=== PATIENT | female | born 1955 | race Caucasian/White ===

== ENCOUNTER 2019-04-29 09:53 | Outpatient (CLI) | payer MEDICAID, SELFPAY ==
[2019-04-29 10:53] LABS: Absolute Basophil Count 0.03 k/cumm (0.0-0.2); Absolute Monocyte Count 0.33 k/cumm (0.11-0.7); Absolute Neutrophil Count 2.39 k/cumm (1.2-6.7); Basophils % 0.6; Eosinophils % 2.2; HCT 36.2 % (36.0-46.0); HGB 11.9 g/dL (12.0-15.5); Lymphocytes % 38.7; Mean Corp. HGB Concentration 32.9 g/dL (32.0-36.0); Mean Corpuscular Hemoglobin 32.1 pg (27.0-33.0); Mean Corpuscular Volume 97.6 fL (80-95); Mean Platelet Volume 10.9 fL (8.0-11.0); Monocytes % 7.1; Neutrophils % 51.4; Platelet Count 208 x1000/uL (130-400); RBC 3.71 m/cumm (4.00-5.20); RBC Distribution Width 12.5 % (11.7-14.6); White Blood Cell Count 4.65 k/cumm (4.4-10.8)
[2019-04-29 12:01] LABS: Vitamin D 25 Total 35.7 ng/ml (30-100)
[2019-04-29 12:09] LABS: ALT 14 U/L (12-78); AST 16 U/L (15-37); Albumin 3.7 g/dL (3.4-5.0); Alkaline Phosphatase 83 U/L (46-116); Anion Gap 8.5 mmol/L (3-11); BUN 25 mg/dL (7-18); Bilirubin, Total 0.3 mg/dL (0.2-1.0); CO2 26.5 mmol/L (21.0-32.0); CREATININE 0.45 mg/dL (0.55-1.02); Calcium 9.2 mg/dL (8.5-10.1); Calculated LDL 117; Chloride 103 mmol/L (98-107); Cholesterol 186 mg/dL (50-200); Glucose 94 mg/dL (70-100); HDL Cholesterol 55 mg/dL (40-60); Magnesium 1.8 mg/dL (1.8-2.4); Potassium 4.6 mmol/L (3.5-5.1); Sodium 138 mmol/L (136-145); TSH 2.35 uIU/mL (0.358-3.74); Total Protein 6.2 g/dL (6.4-8.2); Triglyceride 74 mg/dL (30-150); Vitamin B12 436 pg/mL (193-986)
== END 2019-04-29 10:13 ==
PROVIDERS: PCP Family Medicine Addiction Medicine; Visit Provider Family Medicine Addiction Medicine
DX: Z00.01 Encounter for general adult medical examination with abnormal findings (principal)
CPT/HCPCS: 36415; 80053; 80061; 82306; 83721; 82607; 83735; 84443; 85025

== ENCOUNTER 2019-12-06 11:20 | Outpatient (CLI) | payer MEDICARE, MEDICAID, SELFPAY ==
[2019-12-06 12:44] LABS: Abs Immature Grans 0.02 k/cumm (0.0-0.09); Absolute Basophil Count 0.03 k/cumm (0.0-0.2); Absolute Eosinophil Count 0.09 k/cumm (0.0-0.7); Absolute Lymphocyte Count 2.17 k/cumm (1.2-3.4); Absolute Monocyte Count 0.46 k/cumm (0.11-0.7); Absolute Neutrophil Count 4.18 k/cumm (1.2-6.7); Basophils % 0.4; Eosinophils % 1.3; HCT 38.2 % (36.0-46.0); Immature Grans % 0.3 %; Lymphocytes % 31.2; Mean Corpuscular Hemoglobin 31.2 pg (27.0-33.0); Mean Corpuscular Volume 91.6 fL (80-95); Mean Platelet Volume 10.5 fL (8.0-11.0); Monocytes % 6.6; Neutrophils % 60.2; Platelet Count 202 x1000/uL (130-400); RBC 4.17 m/cumm (4.00-5.20); RBC Distribution Width 11.9 % (11.7-14.6); White Blood Cell Count 6.95 k/cumm (4.4-10.8)
== END 2019-12-06 11:40 ==
PROVIDERS: PCP Family Medicine Addiction Medicine; Visit Provider Family Medicine
DX: D64.9 Anemia, unspecified (principal)
CPT/HCPCS: 36415; 85025

== ENCOUNTER 2020-05-07 02:33 | Outpatient (CLI) | payer MEDICARE, MEDICAID, SELFPAY ==
[2020-05-07 11:47] LABS: Abs Immature Grans 0.01 k/cumm (0.0-0.09); Absolute Basophil Count 0.02 k/cumm (0.0-0.2); Absolute Eosinophil Count 0.09 k/cumm (0.0-0.7); Absolute Neutrophil Count 2.91 k/cumm (1.2-6.7); Basophils % 0.4; Eosinophils % 1.8; HCT 36.4 % (36.0-46.0); HGB 12.6 g/dL (12.0-15.5); Immature Grans % 0.2 %; Lymphocytes % 33.1; Mean Corp. HGB Concentration 34.6 g/dL (32.0-36.0); Mean Corpuscular Hemoglobin 31.4 pg (27.0-33.0); Mean Corpuscular Volume 90.8 fL (80-95); Mean Platelet Volume 10.5 fL (8.0-11.0); Monocytes % 7.8; Neutrophils % 56.7; Platelet Count 200 x1000/uL (130-400); RBC 4.01 m/cumm (4.00-5.20); RBC Distribution Width 11.8 % (11.7-14.6); White Blood Cell Count 5.13 k/cumm (4.4-10.8)
[2020-05-07 13:02] LABS: Vitamin D 25 Total 48.2 ng/ml (30-100)
[2020-05-07 13:11] LABS: ALT 20 U/L (14-59); AST 20 U/L (15-37); Albumin 3.8 g/dL (3.4-5.0); Alkaline Phosphatase 63 U/L (46-116); Anion Gap 9.2 mmol/L (3-11); BUN 14 mg/dL (7-18); Bilirubin, Total 0.6 mg/dL (0.2-1.0); CO2 23.8 mmol/L (21.0-32.0); CREATININE 0.51 mg/dL (0.55-1.02); Calcium 9.2 mg/dL (8.5-10.1); Calculated LDL 100 mg/dL (<100); Chloride 100 mmol/L (98-107); Cholesterol 173 mg/dL (<200); Glucose 77 mg/dL (74-106); HDL Cholesterol 65 mg/dL (40-60); Potassium 4.6 mmol/L (3.5-5.1); Sodium 133 mmol/L (136-145); TSH (W/Ref FT4) 2.02 uIU/mL (0.36-3.74); Total Protein 6.2 g/dL (6.4-8.2); Triglyceride 43 mg/dL (<150); Vitamin B12 780 pg/mL (193-986)
== END 2020-05-07 02:53 ==
PROVIDERS: PCP Family Medicine; Visit Provider Family Medicine
DX: I10 Essential (primary) hypertension (principal); D64.9 Anemia, unspecified; R79.89 Other specified abnormal findings of blood chemistry
CPT/HCPCS: 36415; 80053; 80061; 82306; 82607; 84443; 85025

== ENCOUNTER 2020-08-03 00:17 | Outpatient (CLI) | payer MEDICARE, MEDICAID, SELFPAY ==
--- NOTE | 2020-08-03 | DI.MAMMO_ITS ---
EXAM: MAMMO SCREENING CLINICAL HISTORY: SCREENING, Z12.31 TECHNIQUE: Mammograms were interpreted according to the usual protocol including computer analysis w [employer] CAD system, tomosynthesis and C-view imaging. COMPARISON: FINDINGS: The breasts are heterogeneously dense. No dominant mass or clumped microcalcification is identified in either breast. No previous studies available for comparison. IMPRESSION: No specific evidence of malignancy at this time. Routine screening examinations are suggested at yea rly intervals in this age group according to the ACS ACR guidelines. BI-RADS Category 1 - Negative Breast Density - Category C - Heterogeneously dense
== END 2020-08-03 00:37 ==
PROVIDERS: PCP Family Medicine; Visit Provider Physician Assistant
DX: Z12.31 Encounter for screening mammogram for malignant neoplasm of breast (principal)
CPT/HCPCS: 77063; 77067

== ENCOUNTER 2021-05-06 03:38 | Outpatient (CLI) | payer MEDICARE, MEDICAID, SELFPAY ==
[2021-05-06 12:25] LABS: Abs Immature Grans 0.01 10^3/uL (0.0-0.06); Absolute Basophil Count 0.05 10^3/uL (0.0-0.2); Absolute Eosinophil Count 0.12 10^3/uL (0.0-0.7); Absolute Lymphocyte Count 2.04 10^3/uL (1.2-3.4); Absolute Monocyte Count 0.38 10^3/uL (0.1-0.8); Absolute Neutrophil Count 3.09 10^3/uL (1.2-6.7); Basophils % 0.9; Eosinophils % 2.1; HCT 38.1 % (36.0-46.0); HGB 12.5 g/dL (11.2-15.7); Immature Grans % 0.2; Lymphocytes % 35.9; MCH 31.1 pg (27.0-33.0); MCHC 32.8 % (32.0-36.0); MCV 94.8 fL (80-95); MPV 11.2 fL (8.0-11.0); Monocytes % 6.7; Neutrophils % 54.2; Nucleated RBC 0 %; Platelet Count 200 10^3/uL (130-400); RBC 4.02 10^6/uL (3.93-5.22); RDW 12.7 % (11.7-14.6); WBC 5.69 10^3/uL (4.4-10.8)
[2021-05-06 13:01] LABS: ALT 23 U/L (14-59); AST 17 U/L (15-37); Alkaline Phosphatase 76 U/L (46-116); Anion Gap 7.7 mmol/L (3-11); BUN 22 mg/dL (7-18); Bilirubin, Total 0.5 mg/dL (0.2-1.0); CO2 27.3 mmol/L (21.0-32.0); CREATININE 0.4 mg/dL (0.55-1.02); Calcium 9.3 mg/dL (8.5-10.1); Calculated LDL 128 mg/dL (<100); Chloride 103 mmol/L (98-107); Cholesterol 208 mg/dL (<200); Glucose 97 mg/dL (74-106); HDL Cholesterol 63 mg/dL (40-60); Potassium 4.8 mmol/L (3.5-5.1); Sodium 138 mmol/L (136-145); TSH (W/Ref FT4) 2.59 uIU/mL (0.36-3.74); Total Protein 6.3 g/dL (6.4-8.2); Triglyceride 89 mg/dL (<150); Vitamin B12 373 pg/mL (193-986)
[2021-05-11 17:30] LABS: 1,25-Dihydroxyvitamin D 30 pg/mL (18-78)
== END 2021-05-06 03:39 | disposition home or self-care (01) ==
LOC: LOS 03:39
PROVIDERS: PCP Family Medicine; Referring Provider Physician Assistant; Visit Provider Physician Assistant
DX: I10 Essential (primary) hypertension (principal); Z78.0 Asymptomatic menopausal state; M79.662 Pain in left lower leg; Z00.00 Encounter for general adult medical examination without abnormal findings
CPT/HCPCS: 36415; 80053; 80061; 82607; 82652; 84443; 85025

== ENCOUNTER 2021-08-04 01:49 | Outpatient (CLI) | payer MEDICARE, MEDICAID, SELFPAY ==
--- NOTE | 2021-08-04 | DI.MAMMO_ITS ---
Exam(s) MAMMO SCREENING EXAM: MAMMO SCREENING CLINICAL HISTORY: SCREENING, Z12.31. TECHNIQUE: Bilateral full field digital CC and MLO mammographic images were obtained with 3D tomosyn thesis and utilizing computer aided detection (CAD). COMPARISON: Prior mammograms dating back to 2015, the most recent being July 2020. FINDINGS: Small 3 millimeter benign-appearing lymph node in the left breast seen on MLO imaging is unchanged fr om prior studies. There are no new spiculated masses nor malignant appearing microcalcification groups. There is no significant architectural distortion nor skin thickening-retraction. IMPRESSION: No radiographic evidence of malignancy. BI-RADS Category 1 - Negative Breast Density - Category B - Scattered areas of fibroglandular density Breast density Category C or D implies that the patient has dense breast tissue. Dense breast tissue can make it harder to find cancer on a mammogram. Dense breast tissue is also associated with an incr eased risk of breast cancer. This information about the result of the mammogram report was provided to the patient to raise their awareness. Use this report when you speak with the patient about their risks for breast cancer, which includes their family history. At that time, you may recommend additional screening tests (Ultrasoun d or MRI) as these tests may add significant information. A negative radiographic report should not delay biopsy if a dominant or clinically suspicious mass is present. Up to ten percent of cancers are not identified on mammography. A negative report may reinforce clinical impression. Adenosis and dense breasts may obscure an underlying neoplasm. False positive reports average 6 to 10%. Patient will receive a letter notifying them of these results.
== END 2021-08-04 02:09 ==
PROVIDERS: PCP Family Medicine; Visit Provider Physician Assistant
DX: Z12.31 Encounter for screening mammogram for malignant neoplasm of breast (principal)
CPT/HCPCS: 77063; 77067

== ENCOUNTER → 2022-09-08 03:14 | Outpatient (CLI) | payer MEDICARE, MEDICAID, SELFPAY ==
--- NOTE | 2022-09-08 | DI.MAMMO_ITS ---
Exam(s) MAMMO SCREENING EXAM: MAMMO SCREENING CLINICAL HISTORY: SCREENING, Z12.39 TECHNIQUE: Bilateral full field digital CC and MLO mammographic images were obtained with 3D tomosyn thesis and utilizing computer aided detection (CAD). COMPARISON: Available for comparison. FINDINGS: Masses/Architectural Distortion: None seen. Microcalcifications: No suspicious pleomorphic-type are seen. Skin Thickening/Nipple Retraction: None. IMPRESSION: 1. No significant interval change with no specific features of malignancy noted. 2. Unless there is more urgent need, screening mammography is recommended, as per [employer] guidelines. BI-RADS Category 1 - Negative Breast Density - Category B - Scattered areas of fibroglandular density Breast density category C or D implies that the patient has dense breast tissue. Dense breast tissue is very common and is not abnormal but dense breast tissue can make it harder to find cancer on a ma mmogram. Also, dense breast tissue may increase their breast cancer risk. This information about the result of the mammogram report was provided to the patient to raise their awareness. Use this report when you speak with the patient about their risks for breast cancer, which includes their family hist ory. At that time, you may recommend for more screening tests (Ultrasound or MRI) as they might be us eful based on their risk. A negative radiographic report should not delay biopsy if a dominant or clinically suspicious mass is present. Up to ten percent of cancers are not identified on mammography. A negative report may reinforce clinical impression. Adenosis and dense breasts may obscure an underlying neoplasm. False positive reports average 6 to 10%. Patient will receive a letter notifying them of these results.
--- NOTE | 2022-09-08 15:00 | DI.DEXA_ITS ---
Exam(s) XR DEXA BONE DENSITY W/WO RASHEED EXAM: XR DEXA BONE DENSITY W/WO RASHEED CLINICAL HISTORY: ASYMPTOMATIC MENOPAUSAL STATE, Z78.0 TECHNIQUE: COMPARISON: No exams were available for comparison FINDINGS: Lateral Spine Image: Unremarkable. No compression deformities identified. Left hip: Total T-Score: -1.5 Total Z-Score: -0.1 T- and Z-scores: Findings are consistent with osteopenia. Lumbar Spine: Total T-Score: -1.7 Total Z-Score: 0.3 T- and Z-scores: Findings are consistent with osteopenia. IMPRESSION: Osteopenia in the left hip and lumbar spine.
== END ==
PROVIDERS: PCP Family Medicine; Visit Provider Physician Assistant Medical
DX: Z78.0 Asymptomatic menopausal state (principal); Z13.820 Encounter for screening for osteoporosis; M85.89 Other specified disorders of bone density and structure, multiple sites; Z12.31 Encounter for screening mammogram for malignant neoplasm of breast
CPT/HCPCS: 77063; 77067; 77080

== ENCOUNTER → 2022-09-12 08:28 | Outpatient (BNVA) | payer MEDICARE, MEDICAID, SELFPAY | PROVIDERS: PCP Family Medicine; Referring Provider Family Medicine; Visit Provider Surgery | DX: Z12.11 Encounter for screening for malignant neoplasm of colon (principal) ==

== ENCOUNTER 2022-09-29 08:37 | Day surgery (SDC) | payer MEDICARE, MEDICAID, SELFPAY ==
--- NOTE | 2022-09-28 16:01 | W.PM.DSUDISC ---
Date of service: 09/28/22 Time of Service: 11:05 Discharge Plan Disposition Patient Disposition: HOME Condition: Good Condition: Good Discharge Details Attending Provider: Khurram Min Primary Care Provider: Rey Deshpande III Home Meds and New Rx's Prescriptions: Continued naproxen [EC-Naprosyn] 500 mg tablet,delayed release (DR/EC) 500 mg PO BID oxybutynin chloride 5 mg tablet 5 mg PO BID calcium carbonate-vitamin D3 [Calcium 500 With D] 500 mg-10 mcg (400 unit) tablet 1 tab PO DAILY lisinopril 10 mg tablet 10 mg PO DAILY Discontinued bisacodyl [Dulcolax (bisacodyl)] 5 mg tablet,delayed release (DR/EC) 5 mg PO ONCE Qty: 4 0RF Rx Instructions: Take according to provider's instructions for colonoscopy prep. polyethylene glycol 3350 17 gram/dose powder 17 g PO ONCE Qty: 238 0RF Rx Instructions: To be taken as directed by prescriber's office for colonoscopy prep. Discharge Instructions Additional Instructions: 1. If tolerated, consume a soft, low fiber diet for 1-2 days. 2[address] Do not drive, drink alcohol, operate machinery, make critical decisions, or do activities that require coordination or balance for 24 hours. 3. Because air was put into your colon during the procedure, expelling air from your rectum (passing gas or farting) is normal. 4. You may not have a bowel movement for 1-3 days because of the colonoscopy prep. This is normal. 5. Go directly to the emergency room if you notice any of the following: Develop chills (warm to touch), or if you have a thermometer and your temperature is above 101 Difficulty breathing or difficultly swallowing Persistent vomiting Severe abdominal pain, other than gas cramps Severe chest pain Black, tarry stools Any bleeding ? exceeding one tablespoon 6. Call your physician if the site where your intravenous was started becomes red, swollen, painful, and warm to touch. 7. Your physician has reviewed your pre-procedure medications. Please continue to take those medications as previously ordered. You will be given specific information/education regarding any changes to your medications before leaving. Referrals: Khurrma Min MD [ [facility] STAFF PHYSICIAN] - (Follow up in the office 10/20 at 1015 AM to review pathology and discuss alternative preps, plan for repeat colonoscopy 11/03) Activity:: Activity as Tolerated Diet:: As Tolerated DS: Diagnosis Discharge Diagnosis (1) Positive colorectal cancer screening using Cologuard test: Status: Acute Asessment and Plan: The prep for the colonoscopy was inadequate, and I was not able to satisfactorily visualize all of the colon mucosa
--- NOTE | 2022-09-28 16:02 | W.COLOREPORT ---
Date of service: 09/29/22 Time of Service: 11:04 Colonoscopy Report Date of procedure: 09/29/22 Pre-op diagnosis general: Positive Cologuard Test Post-op diagnosis procedure note: other (positive cologuard with polyp at 20 cm) Procedure: Incomplete colonoscopy Surgeon: Khurram Min Anesthesia Type: General:No Airway Estimated blood loss (mL): 10 Pathology: other (polpy at 20 cm) Complications: Other (Inadequate prep) Disposition: same day Indications: Grace is a 67-year-old woman who had a positive Cologuard test. She is here today for a colonoscopy Prep: Miralax/Dulcolax Procedure Start Time: 10:19 Procedure End Time: 10:57 Findings: The prep was inadequate for visualization. I was able to identify a polyp around 20 cm from the anal verge Procedure Description: After the induction of monitored anesthetic care, and with the patient in left lateral decubitus position, I began by performing an external anorectal exam.? Perineum and skin were normal, as was the anal verge.? There was no evidence of external hemorrhoids.? Next, I performed a digital rectal exam.? I did not appreciate any abnormal findings.? Next, I advanced a colonoscope into the rectal vault.? I performed retroflexion.? There was a fair amount of residual stool. Using insufflation, I then advanced the colonoscope beyond the rectal folds and into the sigmoid colon before advancing towards the cecum.? The quality of the prep was poor.? Despite extensive irrigation, appropriate visualization remained extremely challenging. The standard Olympus variable flex endoscope suction channel was clogged in the descending colon. Despite several maneuvers to try to clear the evacuation channel, I was unable to safely drain residual stool product. Therefore, I removed that scope and began again. This time I was able to advance to the hepatic flexure, but I could not traverse the ascending colon because of residual stool. Again, the endoscope was clogged. Therefore, I began withdrawing the scope. No longer able to irrigate and evacuate, the visualization was not appropriate.?Once the scope was withdrawn to the level of the rectum I was able to identify a polyp around 20 cm from the anal verge. The polyp was less than half a centimeter and sessile. I performed a polypectomy with cold forceps. There was no bleeding.? Finally, the scope was withdrawn and the patient was brought to the same-day surgery recovery unit as the anesthetic wore off. ?The findings and instructions were shared with the patient prior to discharge.
[2022-09-29 09:06] VITALS: BP 152/67; PULSE 90; RESP 16; TEMP 36.3; O2SAT 98
--- NOTE | 2022-09-29 09:27 | ANES.PREOP_ITS ---
General Info Date of Service Date Performed: 09/29/22 Height: 4 ft 3 in Weight: 58.8 kg Body Mass Index (BMI): 35.0 Surgical Procedure: Operation Date: 09/29/22 09:50 Proposed Procedure Side Surgeon ruby Min MD Meds Allergies and Home Medications Allergies Allergy/AdvReac Type Severity Reaction Status Date / Time No Known Allergies Allergy Verified 09/29/22 09:04 Home Medication Medication Instructions Recorded calcium carbonate 500 mg-vitamin 1 tab PO DAILY 09/01/22 D3 10 mcg (400 unit) tablet (Calcium 500 With D) lisinopril 10 mg tablet 10 mg PO DAILY 09/01/22 naproxen 500 mg tablet,delayed 500 mg PO BID 09/01/22 release (EC-Naprosyn) oxybutynin chloride 5 mg tablet 5 mg PO BID 09/01/22 Current Visit Medications: Current Medications Generic Name Dose Route Start Last Admin Trade Name Freq PRN Reason Stop Dose Admin Hyoscyamine Sulfate 0.125 mg 09/29/22 09:04 Hyoscyamine 0.125 Mg Sl/Oral/Chew SL DIRECTED PRN Ringer's Solution 1,000 mls @ 80 mls/hr 09/29/22 06:00 IV 10/28/22 23:59 INFUSION FOR[facility] IV Miscellaneous Supplies 1 each 09/29/22 06:00 Iv Access IV 10/28/22 23:59 DIRECTED [facility] Ondansetron HCl 4 mg 09/29/22 09:04 Ondansetron 4 Mg/2 Ml Vial IVP Q4H PRN PRN Nausea / Vomiting Sodium Chloride 0 ml 09/29/22 06:00 Normal Saline Flush 10 Ml Syr IV 10/28/22 23:59 PRN PRN Sodium Chloride 0 ml 09/29/22 06:00 Normal Saline 10 Ml Vial IJ 10/28/22 23:59 DIRECTED PRN Sterile Water 0 ml 09/29/22 06:00 Water,Injection,Sterile 10 Ml Vial IJ 10/28/22 23:59 DIRECTED PRN PFSH Active Problems Active Problems: Problem Status Onset Code 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 Lumbar radiculopathy M54.16 Essential hypertension I10 Positive colorectal cancer screening using Cologuard test R19.5 Mitral valve prolapse I34.1 Mitral regurgitation I34.0 Screening for colon cancer Z12.11 Medical History Medical History Osteoarthritis of knee Smoker Urinary incontinence Surgical History Surgical History History of section History of colonoscopy Tobacco Smoking/Tobacco Use Status: Former Tobacco Use Alcohol Alcohol Intake: former Substance Use Substance use: Rarely Substance use type: marijuana Vital Signs and Lab Results Vital Signs Most Recent Vital Signs in EMR: Most Recent Vital Signs Temp Pulse Resp BP Pulse Ox 36.3 C L 90 16 152/67 H 98 09/29/22 09:06 09/29/22 09:06 09/29/22 09:06 09/29/22 09:06 09/29/22 09:06 Lab Results Blood Type / Crossmatch: No Data to Display Complete Blood Count: No Data to Display Complete Metabolic Panel: No Data to Display Liver Function Panel: No Data to Display Coagulation Panel: No Data to Display Cardiac Panel: No Data to Display Arterial Blood Gas: No Data to Display Venous Blood Gas: No Data to Display Pancreas Panel: No Data to Display Thyroid Panel: No Data to Display Infectious Disease: No Data to Display Blood Cultures: No Data to Display Toxicology Panel: No Data to Display Anesthesia Assessment and Plan Anesthesia History Personal History: No History of Anesthesia Complications Family History: No Family History of Anesthesia Complications Exercise Tolerance Exercise Tolerance: Metabolic Equivalents>4 Pertinent Negatives Pertinent Negatives: No Symptoms of GERD Cardiac & Pulmonary Exam Cardiac Exam: Normal S1/S2 Heart Sounds Pulmonary Exam: Clear Bilateral Breath Sounds Implantable Cardiac Device Does patient have a Pacemaker or an ICD?: No Airway Exam Known Difficult Airway: No Mallampati Class: 4 Mouth Opening: Normal (> 3cm) Thyromental Distance: Greater than 3 cm Neck Range of Motion: Full ROM Neck Circumference: Normal Teeth Condition: Normal Dentition, Removable Dentures/Plates Upper and Removable Dentures/Plates Lower ASA Classification ASA Score: ASA 2 Emergency Case?: No NPO Status NPO Status: NPO Clears >2 hours, Solids >8 hours Anesthesia Plan Resuscitation Status: Full Code Anesthesia Technique: General Anesthesia Airway Planned: Natural Airway Monitors Used: Standard Monitors
[2022-09-29 10:04] VITALS: BMI 35.0
[2022-09-29] MEDS: Lactated Ringers 1,000 ML 80 ML IV (10:06)
--- NOTE | 2022-09-29 10:54 | BOWEL_PTH ---
PATIENT: Grace Dawson LOC: [facility] U#:[id number] AGE/SX: 67/F ROOM: RE09/29/[address]: Khurram Min MD : [id number] BED: DIS: 09/29/2022 SPEC #: [id number] RECD: 09/29/22 12:05 STATUS: YOSEF REQ #: [id number] HUMBERTO: 09/29/22 10:[address]: Khurram Min DEPT: Surgical Specimen RECD BY: Rocío Lr ENTERED: 09/29/22 12:06 SP TYPE: Bowel OTHR DR: Rey Deshpande III Tissues: 1 - BIOPSY BOWEL Procedures: GROSS AND MICRO LEVEL 4 Comments: [id number]
[2022-09-29 11:07] VITALS: BP 108/62; PULSE 60; RESP 16; TEMP 36.4; O2SAT 100
--- NOTE | 2022-09-29 11:17 | W.ANESPOSTOP ---
Postoperative Evaluation Date, Time and Location Date Performed: 09/29/22 Time Performed: : Patient Location: Day Surgery Unit Vital Signs Most Recent Imported Vital Signs: Most Recent Vital Signs Temp Pulse Resp BP Pulse Ox 36.3 C L 90 16 152/67 H 98 09/29/22 09:06 09/29/22 09:06 09/29/22 09:06 09/29/22 09:06 09/29/22 09:06 Most Recent Manually Entered Vital Signs: Adult Blood Pressure: 108/62 Heart Rate: 62 Respirations: 16 Oxygen Saturation (%): 100 Temperature (C): 36.4 C Pain Score (0-10 Scale): 0 Pain Score Most Recent Pain Score: Most Recent Pain Score Pain Level 0 09/29/22 09:06 Assessment Mental Status: Awake (Alert & Oriented to Patient Baseline) Airway and Respiratory Function: Patent airway with normal (patient baseline) respiratory exam Cardiovascular Function: Hemodynamically Stable Hydration Status: Adequately Hydrated Nausea & Vomiting: No Nausea or Vomiting Pain: Pt. Denies Any Pain Peripheral Nerve Block: Patient did not receive a nerve block
[2022-09-29 11:30] VITALS: BP 120/69; PULSE 59; RESP 17; TEMP 36.3; O2SAT 100
[2022-09-29 11:38] VITALS: BP 108/62; PULSE 62; RESP 16; TEMPC 36.4; O2SAT 100
== END 2022-09-29 11:55 | disposition home or self-care (01) ==
PROVIDERS: PCP Family Medicine; Visit Provider Surgery
PROC: 0DJD8ZZ Inspection of Lower Intestinal Tract, Via Natural or Artificial Opening Endoscopic (ICD-10-PCS; CPT 45378; principal; 2022-09-29 09:45)
DX: R19.5 Other fecal abnormalities (principal); D12.6 Benign neoplasm of colon, unspecified
CPT/HCPCS: 45378; 43239; 88305

== ENCOUNTER → 2022-10-20 10:00 | Outpatient (BNVA) | payer MEDICARE, MEDICAID, SELFPAY | PROVIDERS: PCP Family Medicine; Referring Provider Family Medicine; Visit Provider Physical Therapy Assistant | DX: Z86.010 Personal history of colon polyps (principal); Z01.818 Encounter for other preprocedural examination ==

== ENCOUNTER 2022-11-03 06:51 | Day surgery (SDC) | payer MEDICARE, MEDICAID, SELFPAY ==
--- NOTE | 2022-11-02 20:22 | PDOC.DSDIS_ITS ---
Date of service: 11/03/22 Time of Service: 09:02 Discharge Plan Disposition Patient Disposition: Home Condition: Good Discharge Details Reason For Visit: Screening colonoscopy Attending Provider: Khurram Min Primary Care Provider: Rey Deshpande III Home Meds and New Rx's Prescriptions: Continued naproxen [EC-Naprosyn] 500 mg tablet,delayed release (DR/EC) 500 mg PO BID oxybutynin chloride 5 mg tablet 5 mg PO BID calcium carbonate-vitamin D3 [Calcium 500 With D] 500 mg-10 mcg (400 unit) tablet 1 tab PO DAILY lisinopril 10 mg tablet 10 mg PO DAILY Discontinued polyethylene glycol 3350 17 gram/dose powder 238 g PO ONCE Qty: 238 0RF Rx Instructions: Colonoscopy Bowel Prep- Per Instructions bisacodyl [Dulcolax (bisacodyl)] 5 mg tablet,delayed release (DR/EC) 5 mg PO ONCE Qty: 4 0RF peg 3350-electrolytes [Golytely] 236-22.74-6.74 -5.86 gram recon soln 240 ml PO Q10M Qty: 4000 0RF Rx Instructions: until fecal effluent is clear Discharge Instructions Additional Instructions: 1. If tolerated, consume a soft, low fiber diet for 1-2 days. 2[address] Do not drive, drink alcohol, operate machinery, make critical decisions, or do activities that require coordination or balance for 24 hours. 3. Because air was put into your colon during the procedure, expelling air from your rectum (passing gas or farting) is normal. 4. You may not have a bowel movement for 1-3 days because of the colonoscopy pre p. This is normal. 5. Go directly to the emergency room if you notice any of the following: Develop chills (warm to touch), or if you have a thermometer and your temperature is above 101 Difficulty breathing or difficultly swallowing Persistent vomiting Severe abdominal pain, other than gas cramps Severe chest pain Black, tarry stools Any bleeding ? exceeding one tablespoon 6. Call your physician if the site where your intravenous was started becomes red, swollen, painful, and warm to touch. 7. Your physician has reviewed your pre-procedure medications. Please continue to take those medications as previously ordered. You will be given specific information/education regarding any changes to your medications before leaving. Activity:: Activity as Tolerated Diet:: As Tolerated Discharge Orders Discharge Orders: Discharge Order (Routine); Ordered 11/02/22 Ordered By: Khurram Min DS: Diagnosis Discharge Diagnosis (1) Positive colorectal cancer screening using Cologuard test: Status: Acute Asessment and Plan: Today's colonoscopy was negative. Based on the polyp that was removed on 30 September, I recommend a follow-up colonoscopy in 5 years.
--- NOTE | 2022-11-02 20:24 | W.COLOREPORT ---
Date of service: 11/03/22 Time of Service: 09:04 Colonoscopy Report Date of procedure: 11/03/22 Pre-op diagnosis general: screening colonoscopy Procedure: colonoscopy Surgeon: Khurram Min Anesthesia Type: General:No Airway Estimated blood loss (mL): 0 Pathology: none sent Complications: None Disposition: same day Indications: Grace is a 67 year old woman who had a positive cologuard test. She underwent and incomplete colonoscopy in September that was truncated because of poor quality bowel prep. Prep: GoLYTELY Procedure Start Time: 08:19 Procedure End Time: 08:47 Retraction Time: 17 Findings: Tortuous, but normal colon Procedure Description: After the induction of monitored anesthetic care, and with the patient in left lateral decubitus position, I began by performing an external anorectal exam.? Perineum and skin were normal, as was the anal verge.? There was no evidence of external hemorrhoids.? Next, I performed a digital rectal exam.? I did not appreciate any abnormal findings.? Next, I advanced a colonoscope into the rectal vault.? I performed retroflexion.? This appeared normal.? Using insufflation, I then advanced the colonoscope beyond the rectal folds and into the sigmoid colon before advancing towards the cecum.? The quality of the prep was excellent.? The colon was quite tortuous, required repositioning onto her back to advance into the cecum. The scope was noted to be in the cecum by identification of the ileocecal valve and appendiceal orifice.? I then began withdrawing the colonoscope using repeated irrigation as necessary for full evaluation of the colonic mucosa. ?Once the scope was withdrawn to the level of the rectum, great care was taken to examine portions of the rectal folds.? The region of the previous polypectomy looked normal. Finally, the scope was withdrawn and the patient was brought to the same-day surgery recovery unit as the anesthetic wore off. ?The findings and instructions were shared with the patient prior to discharge. Although today's colonoscopy was negative, because you had a tubular adenoma removed on September 30, I recommend a follow-up colonoscopy in 5 years
--- NOTE | 2022-11-03 06:31 | W.ANESPRE ---
General Info Date of Service Date Performed: 11/03/22 Height: 4 ft 3 in Weight: 58.9 kg Body Mass Index (BMI): 35.1 Surgical Procedure: Operation Date: 11/03/22 08:20 Proposed Procedure Side Surgeon ruby Min MD Meds Allergies and Home Medications Allergies Allergy/AdvReac Type Severity Reaction Status Date / Time No Known Allergies Allergy Verified 10/20/22 10:16 Home Medication Medication Instructions Recorded calcium carbonate 500 mg-vitamin 1 tab PO DAILY 09/01/22 D3 10 mcg (400 unit) tablet (Calcium 500 With D) lisinopril 10 mg tablet 10 mg PO DAILY 09/01/22 naproxen 500 mg tablet,delayed 500 mg PO BID 09/01/22 release (EC-Naprosyn) oxybutynin chloride 5 mg tablet 5 mg PO BID 09/01/22 Current Visit Medications: Current Medications Generic Name Dose Route Start Last Admin Trade Name Freq PRN Reason Stop Dose Admin Hyoscyamine Sulfate 0.125 mg 11/02/22 20:27 Hyoscyamine 0.125 Mg Sl/Oral/Chew SL DIRECTED PRN Ringer's Solution 1,000 mls @ 80 mls/hr 11/03/22 06:00 IV 12/02/22 23:59 INFUSION [facility] IV Miscellaneous Supplies 1 each 11/03/22 06:00 Iv Access IV 12/02/22 23:59 DIRECTED [facility] Ondansetron HCl 4 mg 11/02/22 20:27 Ondansetron 4 Mg/2 Ml Vial IVP Q4H PRN PRN Nausea / Vomiting Sodium Chloride 0 ml 11/03/22 06:00 Normal Saline Flush 10 Ml Syr IV 12/02/22 23:59 PRN PRN Sodium Chloride 0 ml 11/03/22 06:00 Normal Saline 10 Ml Vial IJ 12/02/22 23:59 DIRECTED PRN Sterile Water 0 ml 11/03/22 06:00 Water,Injection,Sterile 10 Ml Vial IJ 12/02/22 23:59 DIRECTED PRN PFSH Active Problems Active Problems: Problem Status Onset Code 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 I05.9 Lumbar radiculopathy M54.16 Essential hypertension I10 Positive colorectal cancer screening using Cologuard test R19.5 Mitral valve prolapse I34.1 Mitral regurgitation I34.0 Screening for colon cancer Z12.11 Medical History Medical History Osteoarthritis of knee Smoker Urinary incontinence Surgical History Surgical History (Updated 11/03/22 @ 07:10 by Jolie Mo RN) History of appendectomy History of section History of colonoscopy Tobacco Smoking/Tobacco Use Status: Former Tobacco Use Alcohol Alcohol Intake: never Substance Use Substance use: Rarely Substance use type: marijuana Vital Signs and Lab Results Vital Signs Most Recent Vital Signs in EMR: Temp Pulse Resp BP Pulse Ox 36.7 C 74 16 142/52 H 99 11/03/22 07:13 11/03/22 07:13 11/03/22 07:13 11/03/22 07:13 11/03/22 07:13 Lab Results Blood Type / Crossmatch: No Data to Display Complete Blood Count: No Data to Display Complete Metabolic Panel: No Data to Display Liver Function Panel: No Data to Display Coagulation Panel: No Data to Display Cardiac Panel: No Data to Display Arterial Blood Gas: No Data to Display Venous Blood Gas: No Data to Display Pancreas Panel: No Data to Display Thyroid Panel: No Data to Display Infectious Disease: No Data to Display Blood Cultures: No Data to Display Toxicology Panel: No Data to Display Anesthesia Assessment and Plan Anesthesia History Personal History: No History of Anesthesia Complications Family History: No Family History of Anesthesia Complications Exercise Tolerance Exercise Tolerance: Metabolic Equivalents>4 Pertinent Negatives Pertinent Negatives: No Symptoms of GERD Cardiac & Pulmonary Exam Cardiac Exam: Heart Murmur Present (Patient reports she has been followed by philosophy instructor for several years, no current plan for surgical intervention. Grade IV/V murmur.) Pulmonary Exam: Clear Bilateral Breath Sounds Implantable Cardiac Device Does patient have a Pacemaker or an ICD?: No Airway Exam Known Difficult Airway: No Mallampati Class: 4 Mouth Opening: Normal (> 3cm) Thyromental Distance: Greater than 3 cm Neck Range of Motion: Full ROM Neck Circumference: Normal Teeth Condition: Normal Dentition, Removable Dentures/Plates Upper and Removable Dentures/Plates Lower ASA Classification ASA Score: ASA 3 Emergency Case?: No NPO Status NPO Status: NPO Clears >2 hours, Solids >8 hours Anesthesia Plan Resuscitation Status: Full Code Anesthesia Technique: General Anesthesia Airway Planned: Natural Airway Monitors Used: Standard Monitors Preoperative Comments:: Per previous discussions as seen in Preop Webex channel: patient's most recent ECHO reviewed by Deni Bishop prior to the patient's first colonoscopy in September. Unable to find copy of ECHO to review today. No special considerations noted in last Anesthesia preop or intraop.
[2022-11-03 07:13] VITALS: BP 142/52; PULSE 74; RESP 16; TEMP 36.7; O2SAT 99
[2022-11-03] MEDS: Lactated Ringers 1,000 ML 80 ML IV (07:20)
[2022-11-03 08:10] VITALS: BMI 35.1
[2022-11-03 08:52] VITALS: BP 103/65; PULSE 75; RESP 16; TEMP 36.2; O2SAT 98
[2022-11-03 09:16] VITALS: BP 91/61; PULSE 66; RESP 16; TEMP 36; O2SAT 98
--- NOTE | 2022-11-03 09:26 | W.ANESPOSTOP ---
Postoperative Evaluation Date, Time and Location Date Performed: 11/03/22 Time Performed: 09:26 Patient Location: Day Surgery Unit Vital Signs Most Recent Imported Vital Signs: Most Recent Vital Signs Temp Pulse Resp BP Pulse Ox 36 C L 66 16 91/61 L 98 11/03/22 09:16 11/03/22 09:16 11/03/22 09:16 11/03/22 09:16 11/03/22 09:16 Pain Score Most Recent Pain Score: Most Recent Pain Score Pain Level 0 11/03/22 09:16 Assessment Mental Status: Awake (Alert & Oriented to Patient Baseline) Airway and Respiratory Function: Patent airway with normal (patient baseline) respiratory exam Cardiovascular Function: Hemodynamically Stable Hydration Status: Adequately Hydrated Nausea & Vomiting: No Nausea or Vomiting Pain: Pt. Denies Any Pain Peripheral Nerve Block: Patient did not receive a nerve block
== END 2022-11-03 09:32 | disposition home or self-care (01) ==
PROVIDERS: PCP Family Medicine; Visit Provider Surgery
PROC: 0DJD8ZZ Inspection of Lower Intestinal Tract, Via Natural or Artificial Opening Endoscopic (ICD-10-PCS; CPT 45378; principal; 2022-11-03 08:15)
DX: R19.5 Other fecal abnormalities (principal); F17.210 Nicotine dependence, cigarettes, uncomplicated; Z86.010 Personal history of colon polyps
CPT/HCPCS: 45378

== ENCOUNTER → 2023-09-13 03:33 | Outpatient (CLI) | payer MEDICARE, MEDICAID, SELFPAY ==
--- NOTE | 2023-09-13 | DI.MAMMO_ITS ---
Exam(s) MAMMO SCREENING EXAM: MAMMO SCREENING CLINICAL HISTORY: SCREENING FOR BREAST CANCER Z12.31 TECHNIQUE: Mammograms were interpreted according to the usual protocol including computer analysis w [employer] CAD system, tomosynthesis and C-view imaging. COMPARISON: 2015 through 2021 FINDINGS: The breasts are composed of scattered fibroglandular densities, Breast Density category B. No suspicious masses or suspicious microcalcifications are seen. No skin thickening or abnormal axillary lymph nodes are seen. There has been no significant change from prior exams. IMPRESSION: BI-RADS Category 1, Negative mammogram Yearly screening mammography is recommended. Breast Density - Category B, scattered fibroglandular densities. A negative radiographic report should not delay biopsy if a dominant or clinically suspicious mass is present. Up to ten percent of cancers are not identified on mammography. A negative report may reinforce clinical impression. Adenosis and dense breasts may obscure an underlying neoplasm. False positive reports average 6 to 10%. Patient will receive a letter notifying them of these results.
== END ==
PROVIDERS: PCP Family Medicine; Visit Provider Physician Assistant Medical
DX: Z12.31 Encounter for screening mammogram for malignant neoplasm of breast (principal); R92.323 Mammographic fibroglandular density, bilateral breasts
CPT/HCPCS: 77063; 77067

== ENCOUNTER 2023-09-28 13:05 | Outpatient (CLI) | payer MEDICARE, MEDICAID, SELFPAY ==
[2023-09-28 11:39] LABS: ALT 21 U/L (14-59); AST 16 U/L (15-37); Albumin 3.5 g/dL (3.4-5.0); Alkaline Phosphatase 85 U/L (46-116); Anion Gap 7.5 mmol/L (3-11); BUN 22 mg/dL (7-18); Bilirubin, Total 0.5 mg/dL (0.2-1.0); CO2 23.5 mmol/L (21.0-32.0); CREATININE 0.5 mg/dL (0.55-1.02); Calcium 9.8 mg/dL (8.5-10.1); Chloride 103 mmol/L (98-107); Estimated GFR 101.46 (mL/min/1.73m2); Glucose 98 mg/dL (74-106); Potassium 4.2 mmol/L (3.5-5.1); Sodium 134 mmol/L (136-145); Total Protein 6.7 g/dL (6.4-8.2)
--- OUTSIDE RECORDS SUMMARY | 2023-09-28 13:07 | XMS_ITS | Continuity of Care Document ---
Author Name Unknown Address [address] [place] [address] Phone Organization [facility] Address [address] [place] [address] Phone Care Team Providers Care Head Of Mobile Name Role Phone PCP, of Choice Primary Care Provider UnavailDiane Rogers Attending Provider Unavailable PCP, of Choice Primary Care Provider UnavailBlank Malhotra Attending Provider Unavailabl e PCP, of Choice Primary Care Provider Unavailsandy e Diane Stiles Attending Provider Unavailable Diane Stiles Primary Care Provider Unavaila ble Jason Ramírez Jr Attending Provider Unavailable Allergies, Adverse Reactions, Alerts No known allergies. Medications No medication information available. Problems Active Problems Medical Problem Onset Date Status Essential hypertension May 17, 2016 Active Mitral valve disease May 17, 2016 Active Procedures Procedure Date Performed Status ECHO Complete July 10, 2019 active [facility] Mammo Bilat Scrn Panel July 16, 2019 active Chief Complaint and Reason for Visit Chief Complaint Nonrheumatic mitral valve prolapse Screening 1 yr fu (echo ordered, do be done 1 week prior) Encounters Encounter Location(s) Arrival/Admit Date Discharge /Depart Date Provider(s) Departed Referred [facility] [place] [facility] May 08, 2019 8:28pm May 08, 2019 8:29pm PARI Truong Departed Clinical [facility] July 10, 2019 12:09pm July 10, 2019 12:10pm Blank SALCEDO Departed Physician/Provi tyson Office Visit [facility] July 16, 2019 12:00am July 16, 2019 Conversion Medent Registered Clinical [facility] July 16, 2019 10:26am PARI Truong Departed Physician/Provi tyson Office Visit [facility] July 16, 2019 11:13am July 16, 2019 11:31am Jason Ramírez JR, MD Assessments No Assessments Information Available Functional Status No Functional Status information available Goals No Goals Information Available Mental Status No Mental Status Information Available Medical Equipment No Medical Equipment Information available Insurance Providers Guarantor AUSTYN MARTIN Address [address] [place] [address] Contact Info. Home Phone: Payer Policy Id Coverage Id Subscriber's Name Subscriber Id Effective Date Expiration Date [facility] [id number] AUSTYN MARTIN [id number] 2016 [employer] [place] [id number] AUSTYN MARTIN [id number] MEDICARE PART A AND B COVERAGE [id number] AUSTYN MARTIN [id number] SELF PAY Self N/A Social History Assigned Sex Female Vital Signs Vital Reading Result Reference Range Collection Date/Time Height 51 [in_i] July 16, 2019 11:18am Weight 55.79 kg July 16, 2019 11:18am Heart Rate 60 /min 60-100 July 16, 2019 11:18am Respiratory rate 16 /min 12-24 July 162018 11:18am Oxygen saturation by Pulse oximetry 97 % 95-100 July 16, 2019 11:18am BP Systolic 118 mm[Hg] 100-140 July 16, 2019 11:18am BP Diastolic 68 mm[Hg] 50-85 July 16, 2019 11:18am
--- OUTSIDE RECORDS SUMMARY | 2023-09-28 13:07 | XMS_ITS | Continuity of Care Document ---
Author Name [facility] Address [address] [place] [address] Organization [facility] Address [address] [place] [address] Care Team Providers Care Tablet Tester Name Role Phone Rosa Buchanan Primary Care Physician Jason Ramírez Jr Attending Physician Allergies, Adverse Reactions, Alerts No allergy information available. Medications No medication information available. Problem List No problem information available. Procedures Procedure Date Status ECHO Complete June 28, 2017 active [facility] Mammo Bilat Scrn Panel April 26, 2017 comp leted Relevant Diagnostic Tests and/or Laboratory Data Laboratory Results Test Date/Time Result Interp. Ref. Range Result Co mment Sodium Level September 07, 2016 12:06am 143 mmol/L 137-145 Potassium Level September 07, 2016 12:06am 4.7 mmol/L 3.6-5.0 Chloride Level September 07, 2016 12:06am 103 mmol/L 98-107 Carbon Dioxide Level September 07, 2016 12:06am 25 mmol/L 22-30 Anion Gap September 07, 2016 12:06am 15 7-16 Blood Urea Nitrogen September 07, 2016 12:06am 26 mg/dL High 7-17 Creatinine September 07, 2016 12:06am 0.53 mg/dL 0.52-1.04 Glomerular Filtration Rate Calc September 07, 2016 12:06am > 60 mL/min Glucose Level September 07, 2016 12:06am 98 mg/dL 70-100 Calcium Level September 07, 2016 12:06am 9.6 mg/dL 8.4-10.2 Calcium Adjusted for Albumin September 07, 2016 12:06am 10.00 mg/dL 8.4-10.2 Total Bilirubin September 07, 2016 12:06am 0.7 mg/dL 0.2-1.3 Aspartate Amino Transf (AST/SGOT) September 07, 2016 12:06am 20 U/L 14-36 Alanine Aminotransferase (ALT/SGPT) September 07, 2016 12:06am 19 U/L 9-52 Total Protein September 07, 2016 12:06am 6.9 g/dL 6.3-8.2 Albumin September 07, 2016 12:06am 3.8 g/dL 3.5-5.0 Alkaline Phosphatase September 07, 2016 12:06am 102 U/L 38-126 Hepatitis C Antibody March 17, 2017 11:00am Negative New methodology in use 02/28/17. Test Performed by: [place] [address] Computer System Technician: Alejandro Bright MD , Ph D Varicella-Zoster IgG Antibody March 17, 2017 11:00am Positive Presence of detectable Varicella Zoster virus IgG antibodies. Test Performed by: [place] [address] Computer System Technician: Alejandro Bright MD , Ph D Advance Directives Advance Directive Response Recorded Date/ Time Do we have a copy [place] here [place] [facility]? No April 26, 2017 9:39am Does patient have an Advanced Directive? No November 11, 2010 4:25pm Pt has a Living Will? No October 152009 4:25pm Pt has a Power of Sales Special Agent? No Dece 2009 4:25pm Chief Complaint and Reason for Visit Encounter Admit Date Chief Complaint Reason for V isit Departed Clinical June 28, 2017 8:39am I34.1 N ONRHEUMATIC MITRAL (VALVE) PROLAPSE Hospital Discharge Instructions No known hospital discharge instructions. Encounters Encounter Facility Location Admit/Visit Date Discharge/Departure Date Attending Provider Departed Clinical [facility] June 28, 2017 8:39am June 28, 2017 8:40am Jason Ramírez Jr Departed Clinical [facility] April 26, 2017 9:36am April 26, 2017 9:37am Rosa Buchanan Departed Referred [facility] March 17, 2017 5:24pm March 17, 2017 5:25pm Rosa Buchanan Registered Referred [facility] September 07, 2016 4:21pm Bondesen, Rosa Functional Status No known functional status. Immunizations No known immunizations. Payers Payer Name Policy Type Covered Constitution Party Covered Constitution Party Id Relationship Subscriber Subscriber Id [facility] Commercial AUSTYN MARTIN [id number] Self/Same as Patient AUSTYN KAYNESTOR [id number] [place] Medicaid AUSTYN KAYNESTOR [id number] Self/Same as Patient AUSTYN ROMEROSOWALD [id number] SELF PAY Personal Plan of Care No Known Plan of Care Information Social History No known social history. Vital Signs No known vital signs results.
--- OUTSIDE RECORDS SUMMARY | 2023-09-28 13:07 | XMS_ITS | Continuity of Care Document ---
Author Name Unknown Address [address] [place], [place] [address] Phone Organization [facility] Address [address] [place], [place] [address] Phone Care Team Providers Care Fitter Type Bar And Segment Name Role Phone Diane Deal Primary Care Provider [phone] Jason Ramírez Jr Attending Provider Rosa Buchanan Attending Provider Care Teams Patient Care Team Team Status: Active Member Role Status Dates PARI Cates Primary Care Provider Active Patient Care Team Team Status: Inactive Member Role Status Dates PARI Cates Primary Care Provider Active PARI Smith Attending Provider Active Patient Care Team Team Status: Active Member Role Status Dates PARI Cates Primary Care Provider Active Jason Ramírez Jr Attending Provider, Referring Provide r Active Chief Complaint and Reason for Visit Chief Complaint Admit Date 1 year follow up September 06, 2022 9 :21am Reason for Visit Admit Date Mitral valve disease September 06, 2022 9:21am Allergies, Adverse Reactions, Alerts No known allergies Social History Smoking Status Status Start Date End Date Date of Observa tion Never smoked tobacco (finding) September 01, 2020 3:06pm Observation Status Observation Response Date of Response alcohol intake frequency holidays/special occasi ons only September 01, 2020 3:06pm substance use type does not use September 01, 2020 3:06pm Smoking Status Never smoker September 01 3:06pm Additional Data Assigned Sex Female Problems Active Problems Medical Problem Onset Date Status Essential hypertension May 17, 2016 Active Mitral valve disease May 17, 2016 Active Medications Medication Status Dose Units Route Directions Qty Days St art Date End Date Instructions Naproxen Active 500 MG PO DAILY [facility] 2018 12:00am Oxybutynin Chloride Active 5 MG PO TWICE A DAY [facility] 2018 12:00am Lisinopril Discontin ued 10 [facility] 12:00am September 07, 2021 9:41am Gabapentin Discontin ued 100 MG PO THREE TIMES A DAY [facility] 2018 12:00am September 06, 2022 9:27am Calcium Carbonate-V itamin D3 (Calcium 600 With Vitamin D3) 600 mg(1,500mg) -500 unit capsule Active 1 CAP PO DAILY September 01, 2020 12:00am Lisinopril Active 10 MG PO DAILY 90 Oct2020 9:39am Relevant Diagnostic Tests and/or Laboratory Data Laboratory Results Test Date/Time Result Interpretation Reference Range Result Comment Performing Site White Blood Count August 22, 2023 10:31am 4.76 1000/mm3 4.8-10.8 [facility] [id number] [address] [address] Red Blood Count August 22, 2023 10:31am 4.04 M/mm3 4.20-5.40 [facility] [id number] [address] [address] Hemoglobin August 22, 2023 10:31am 13.0 g/dL 12.0-16.0 [facility] [id number] [address] [address] Hematocrit August 22, 2023 10:31am 37.2 % 37-47 [facility] [id number] [address] [address] Mean Corpuscular Volume August 22, 2023 10:31am 92.1 fL 81.0-99.0 [facility] [id number] [address] [address] Mean Corpuscular Hemoglobin October 10th, 2023 10:31am 32.2 pg 27-31 [facility] [id number] [address] [address] Mean Corpuscular Hemoglobin Concent August 22, 2023 10:31am 34.9 g/dL 33-37 [facility] [id number] [address] [address] Red Cell Distribution Width August 22, 2023 10:31am 11.6 % 11.5-14.5 [facility] [id number] [address] [address] Platelet Count August 22, 2023 10:31am 176 1000/mm3 140-440 [facility] [id number] [address] [address] Mean Platelet Volume August 22, 2023 10:31am 11.7 fL 7.4-10.4 [facility] [id number] [address] [address] Neutrophils (%) (Auto) August 22, 2023 10:31am 59.1 % 40.0-72.0 [facility] [id number] [address] [address] Lymphocytes (%) (Auto) August 22, 2023 10:31am 31.7 % 17-45 [facility] [id number] [address] [address] Monocytes (%) (Auto) August 22, 2023 10:31am 7.4 % 3-11 [facility] [id number] [address] [address] Eosinophils (%) (Auto) August 22, 2023 10:31am 0.8 % 0-3 [facility] [id number] [address] [address] Basophils (%) (Auto) August 22, 2023 10:31am 0.8 % 0-1 [facility] [id number] [address] [address] Immature Granulocyte % (Auto) August 22, 2023 10:31am 0.2 % 0-1 [facility] [id number] [address] [address] Neutrophils # (Auto) August 22, 2023 10:31am 2.81 1000/mm3 1.4-6.5 [facility] [id number] [place] [address]168 Lymphocytes # (Auto) August 22, 2023 10:31am 1.51 1000/mm3 1.2-3.4 [facility] [id number] [address] [address] Monocytes # (Auto) August 22, 2023 10:31am 0.35 1000/mm3 0.0-0.8 [facility] [id number] [address] [address] Eosinophils # (Auto) August 22, 2023 10:31am 0.04 1000/mm3 0.0-0.7 [facility] [id number] [address] [address] Basophils # (Auto) August 22, 2023 10:31am 0.04 1000/mm3 0.0-0.1 [facility] [id number] [place] [address]168 Absolute Immature Granulocyte (auto August 22, 2023 10:31am 0.0 0-1 [facility] [id number] [place] [address]168 Differential Method August 22, 2023 10:31am Automated [facility] [id number] [place] [address]168 Sodium Level August 22, 2023 10:31am 131 mmol/L 137-145 [facility] [id number] [place] [address] Potassium Level August 22, 2023 10:31am 4.6 mmol/L 3.6-5.0 [facility] [id number] [place] [address] Chloride Level August 22, 2023 10:31am 98 mmol/L 98-107 [facility] [id number] [place] [address] Carbon Dioxide Level August 22, 2023 10:31am 25 mmol/L 22-30 [facility] [id number] [address] [address] Anion Gap August 22, 2023 10:31am 8 7-16 [facility] [id number] [address] [address] Blood Urea Nitrogen August 22, 2023 10:31am 16 mg/dL 7-17 [facility] [id number] [address] [address] Creatinine August 22, 2023 10:31am 0.40 mg/dL 0.52-1.04 [facility] [id number] [address] [address] Glomerular Filtration Rate Calc August 22, 2023 10:31am 107 mL/min >60.0 [facility] [id number] [address] [address] Glucose Level August 22, 2023 10:31am 88 mg/dL 70-100 [facility] [id number] [address] [address] Calcium Level August 22, 2023 10:31am 9.2 mg/dL 8.4-10.2 [facility] [id number] [address] [address] Calcium Adjusted for Albumin August 22, 2023 10:31am 9.7 mg/dL 8.4-10.2 [facility] [id number] [address] [address] Magnesium Level August 22, 2023 10:31am 1.9 mg/dL 1.6-2.3 [facility] [id number] [address] [address] Albumin August 22, 2023 10:31am 3.7 g/dL 3.5-5.0 [facility] [id number] [address] [address] Total Protein August 22, 2023 10:31am 6.3 g/dL 6.3-8.2 [facility] [id number] [address] [address] Alkaline Phosphatase August 22, 2023 10:31am 77 U/L 38-126 [facility] [id number] [address] [address] Alanine Aminotransfera se (ALT/SGPT) August 22, 2023 10:31am 18 U/L <35 Per Ortho Clinical Diagnostic's notification dated January 16, 2023, note that ascorbic acid concentrations of 100 mg/dL may produce a negative bias greater than 12.5%. [facility] [id number] [address] [address] Aspartate Amino Transf (AST/SGOT) August 22, 2023 10:31am 26 U/L 14-36 [facility] [id number] [address] [address] Total Bilirubin August 22, 2023 10:31am 0.7 mg/dL 0.2-1.3 [facility] [id number] [address] [address] Cholesterol Level August 22, 2023 10:31am 170 mg/dL 59-199 [facility] [id number] [address] [address] Triglycerides Level August 22, 2023 10:31am 89 mg/dL 0-149 [facility] [id number] [address] [address] HDL Cholesterol August 22, 2023 10:31am 53 mg/dL 40-60 The National Cholesterol Education Program (NCEP) has set the following guidelines (reference values) for cholesterol, HDL:Low HDL: <40 mg/dLNormal: 40-60 mg/dLDesirable: >60 mg/dL [facility] [id number] [address] [address] LDL Cholesterol August 22, 2023 10:31am 99 mg/dL 0-129 [facility] [id number] [address] [address] VLDL Cholesterol August 22, 2023 10:31am 18 mg/dL 0-32 [facility] [id number] [address] [address] Cholesterol/HD L Ratio August 22, 2023 10:31am 3.2 0-3.9 [facility] [id number] [address] [address] Vitamin B12 Level August 22, 2023 10:31am 623.0 pg/mL 239-931 The results of this assay can be falsely increased in patients who consume Biotin. [facility] [id number] [address] [address] Vitamin D Level August 22, 2023 10:31am 56.2 ng/mL 30-100 *Reference Ranges Updated 01/14/19*Defici ent: <20 ng/mLInsufficie nt: 20 - <30 ng/mLSufficient : 30 - 100 ng/mLPotential Toxicity: >100 ng/mL [facility] [id number] [address] [address] Thyroid Stimulating Hormone (TSH) August 22, 2023 10:31am 1.990 mIU/L 0.47-4.68 The results of this assay can be falsely decreased in patients who consume Biotin. [facility] [id number] [address] [address] Vital Signs Vital Reading Result Reference Range Collection Date/Time Height 51 [in_i] September 06, 9:24am Weight 61.23 kg September 06 9:24am Heart Rate 69 /min 60-100 September 06 9:24am Respiratory rate 16 /min -August 9:24am Oxygen saturation by Pulse oximetry 97 % 95-100 September 06, 2022 9 :24am BP Systolic 100 mm[Hg] 100-140 September 06 022 9:24am BP Diastolic 68 mm[Hg] 50-85 September 06 022 9:24am BMI (Body Mass Index) 36.5 kg/m2 Octobe r 2021 9:24am Advance Directives Advance Directive Response Recorded Date/ Time Does patient have an Advance Directive? No September 06, 2022 9:21am Does patient have a COLST form? No September 06, 2022 9:21am Insurance Providers Guarantor AUSTYN MARTIN Address [address] [facility] [address] Contact Info. Home Phone: Payer Policy Id Coverage Id Subscriber's Name Subscriber Id Effective Date Expiration Date [facility] [id number] AUSTYN M HEATHERTROYNESTOR [id number] 2016 [facility] [id number] AUSTYN MARTIN [id number] MEDICARE PART A AND B COVERAGE [id number] AUSTYN Banegas HEATHEROSWALD [id number] SELF PAY Self N/A Encounters Encounter Location(s) Arrival/Admit Date Discharge/Depart Date Provider(s) Non-patient / Non-visit [facility] Cardiology Svc September 06, 2022 9:21am Jason Ramírez JR, MD Departed Referred [facility] August 22, 2023 6:57pm August 22, 2023 6:58pm PARI Smith Recent Diagnosis Onset Date Admit Date Mitral valve disease May 17, 2016August 9:21am Assessments Diagnosis Onset Date Resolution Status Admit Date Mitral valve disease May 17, 2016 noneactive September 06, 2022 9:21am
--- OUTSIDE RECORDS SUMMARY | 2023-09-28 13:07 | XMS_ITS | Continuity of Care Document ---
Author Name [facility] Address [address] [place] [address] Organization [facility] Address [address] [place] [address] Care Team Providers Care Furnace Reliner Name Role Phone Nieves Burgos Primary Care Physician Unavailab le Nieves Burgos Attending Physician Unavailable Allergies, Adverse Reactions, Alerts No allergy information available. Medications No medication information available. Problem List No problem information available. Procedures Procedure Date Status Moreno Mammo Bilat Scrn Panel April 27, 2018 comp leted ECHO Complete June 28, 2017 active Relevant Diagnostic Tests and/or Laboratory Data No known relevant diagnostic tests, laboratory data, and/or discharge summary. Advance Directives Advance Directive Response Recorded Date/ Time Do we have a copy on file here at [facility] [place]? No April 26, 2017 9:39am Does patient have an Advanced Directive? No November 11, 2010 4:25pm Pt has a Living Will? No October 152009 4:25pm Pt has a Power of Beet Worker? No Dece 2009 4:25pm Chief Complaint and Reason for Visit Encounter Admit Date Chief Complaint Reason for V isit Departed Clinical April 27, 2018 7:37am Screening Hospital Discharge Instructions No known hospital discharge instructions. Encounters Encounter Facility Location Admit/Visit Date Discharge/Departure Date Attending Provider Departed Clinical [facility] April 27, 2018 7:37am April 27, 2018 7:38am Nieves Burgos Departed Clinical [facility] June 28, 2017 8:39am June 28, 2017 8:40am Jason Ramírez Jr Functional Status No known functional status. Immunizations No known immunizations. Payers Payer Name Policy Type Covered Democrat Covered Democrat Id Relationship Subscriber Subscriber Id [facility] Commercial AUSTYN MARTIN [id number] Self/Same as Patient AUSTYN KAYNESTOR [id number] [place] Medicaid AUSTYN MARIO [id number] Self/Same as Patient AUSTYN ROMEROOSWALD [id number] SELF PAY Personal Plan of Care No Known Plan of Care Information Social History No known social history. Vital Signs No known vital signs results.
--- OUTSIDE RECORDS SUMMARY | 2023-09-28 13:07 | XMS_ITS | Continuity of Care Document ---
Author Name Unknown Address [address] [place] [address] Phone Organization [facility] Address [address] [place] [address] Phone Care Team Providers Care Block Handler Name Role Phone PCP, of Choice Primary Care Provider Diane Hoyt Attending Provider Unavailable PCP, of Choice Primary Care Provider Blank Walker Attending Provider Unavailsandy e Allergies, Adverse Reactions, Alerts No known allergies. Medications No medication information available. Problems Active Problems Medical Problem Onset Date Status Essential hypertension May 17, 2016 Active Mitral valve disease May 17, 2016 Active Procedures Procedure Date Performed Status ECHO Complete July 10, 2019 active Chief Complaint and Reason for Visit Chief Complaint Nonrheumatic mitral valve prolapse Encounters Encounter Location(s) Arrival/Admit Date Discharge/Depart Date Provider(s) Departed Referred [facility] May 08, 2019 8:28pm May 08, 2019 8:29pm PARI Truong Departed Clinical [facility] July 10, 2019 12:09pm July 10, 2019 12:10pm Blank Polanco GOURMET COFFEE ATTENDANT Assessments No Assessments Information Available Functional Status No Functional Status information available Goals No Goals Information Available Mental Status No Mental Status Information Available Medical Equipment No Medical Equipment Information available Insurance Providers Guarantor AUSTYN MARTIN [address] [facility] [address] Contact Info. Home Phone: Payer Policy Id Coverage Id Subscriber's Name Subscriber Id Effective Date Expiration Date [facility] [id number] 7 AUSTYN MARTIN [id number] 2016 [place] [id number] AUSTYN MARTIN [id number] MEDICARE PART A AND B COVERAGE [id number] AUSTYN MARTIN [id number] SELF PAY Self N/A Social History Assigned Sex Female
--- OUTSIDE RECORDS SUMMARY | 2023-09-28 13:07 | XMS_ITS | Continuity of Care Document ---
Author Name [facility] Address [address] [place] [address] Organization [facility] Address [address] [place] [address] Care Team Providers Care Temperature Inspector Name Role Phone Rosa Buchanan Primary Care Physician Rosa Buchanan Attending Physician Allergies, Adverse Reactions, Alerts No allergy information available. Medications No medication information available. Problem List No problem information available. Procedures Procedure Date Status ECHO Complete April 20, 2016 active TTE W/DOPPLER COMPLETE April 20, 2016 active BREAST TOMOSYNTHESIS BI April 20, 2016 active COMP SCREEN MAMMOGRAM ADD-ON April 20, 2016 act anthony Moreno Mammo Bilat Scrn Panel April 20, 2016 comp leted Relevant Diagnostic Tests and/or Laboratory [...] September 07, 2016 12:06am 102 U/L 38-126 Advance Directives Advance Directive Response Recorded Date/ Time Does patient have an Advanced Directive? No November 11, 2010 4:25pm Pt has a Living Will? No October 152009 4:25pm Pt has a Power of Research Associate Molecular Biology? No Dece 2009 4:25pm Hospital Discharge Instructions No known hospital discharge instructions. Encounters Encounter Facility Location Admit/Visit Date Discharge/Departure Date Attending Provider Departed Referred [facility] March 17, 2017 5:24pm March 17, 2017 5:25pm Rosa Buchanan Registered Referred [facility] September 07, 2016 4:21pm Rosa Buchanan Registered Clinical [facility] Card[facility] June 14, 2016 11:00am Jason Ramírez Jr Registered Clinical [facility] April 20, 2016 8:45am Rosa Buchanan Functional Status No known functional status. Immunizations No known immunizations. Payers Payer Name Policy Type Covered Green Party Covered Green Party Id Relationship Subscriber Subscriber Id [facility] Commercial AUSTYN MARTIN [id number] Self/Same as Patient AUSTYN MARTIN [id number] [place] Medicaid AUSTYN MARTIN [id number] Self/Same as Patient AUSTYN MARTIN [id number] SELF PAY Personal Plan of Care No Known Plan of Care Information Social History No known social history. Vital Signs No known vital signs results.
--- OUTSIDE RECORDS SUMMARY | 2023-09-28 13:07 | XMS_ITS | Continuity of Care Document ---
Author Name Unknown Address [address] [place] [address] Phone [facility] Address [address] [place] [address] Phone Support Name Relationship Address Phone MARIO ISAACS Friend or Other EX Jason Ramírez Jr Attending Provider [facility] [place] [address] Diane Deal Primary Care Provider [address] [place] [address] Referral, Self Referring Provider Unknown Unavail able Allergies, Adverse Reactions, Alerts No known allergies. Medications Medication Status Dose Units Route Directions Qty Days Start Rolando e End Date Instructions Naproxen Active 500 MG PO DAILY 2018 11:32am Oxybutynin Chloride Active 5 MG PO TWICE A DAY July 16, 2019 11:32am Lisinopril Active 10 MG PO DAILY 2018 11:33am Gabapentin Active 100 MG PO THREE KOBE ES A DAY July 16, 2019 11:33am Calcium Carbonate-Vi tamin D3 (Calcium 600 With Vitamin D3) 600 mg(1,500mg) -500 unit capsule Active 1 CAP PO DAILY September 01, 2020 3:05pm Problems Active Problems Medical Problem Onset Date Status Essential hypertension May 17, 2016 Active Mitral valve disease May 17, 2016 Active Advance Directives Advance Directive Response Recorded Date/ Time Does patient have an Advanced Directive? No November 11, 2010 5:25pm Do we have a copy on file here at [facility]? No April 26, 2017 9:39am Pt has a Living Will? No October 152009 5:25pm Do we have a copy on file here at [facility]? No April 26, 2017 9:39am Pt has a Power of Ocular Care Technologist? No Dece mber 2009 5:25pm Do we have a copy on file here at [facility]? No April 26, 2017 9:39am Chief Complaint and Reason for Visit Chief Complaint 1 year follow up Encounters Encounter Location(s) Arrival/Admit Date Discharge/Depart Date Provider(s) Departed Physician/Prov ider Office Visit [facility] September 01, 2020 2:59pm September 01, 2020 3:16pm Jason Ramírez JR, MD Assessments No Assessments Information Available Functional Status No Functional Status information available Goals Goals may be documented in an alternate section. Mental Status No Mental Status Information Available Medical Equipment No Medical Equipment Information available Insurance Providers Guarantor AUSTYN MARTIN Address [address] [place] [address] Contact Info. Home Phone: Payer Policy Id Coverage Id Subscriber's Name Subscriber Id Effective Date Expiration Date [facility] [id number] 7 AUSTYN M MARIO [id number] 2016 [place] [id number] AUSTYN MARTIN [id number] MEDICARE PART A AND B COVERAGE [id number] AUSTYN MARTIN [id number] SELF PAY Self N/A Social History Smoking Status Status Date of Observation Never smoked tobacco (finding) August 142019 3:06pm Observation Status Observation Response Date of Response alcohol intake frequency holidays/special occasi ons only September 01, 2020 3:06pm substance use type does not use September 01, 2020 3:06pm Smoking Status Never smoker September 01 3:06pm Assigned Sex Female Vital Signs Vital Reading Result Reference Range Collection Date/Time Height 51 [in_i] September 01 3:03pm Weight 58.51 kg September 01 3:03pm Heart Rate 65 /min 60-100 September 01 3:03pm Respiratory rate 16 /min 12-24 August 3:03pm Oxygen saturation by Pulse oximetry 95 % 95-100 September 01, 2020 3 :03pm BP Systolic 106 mm[Hg] 100-140 October 20th, 2 020 3:03pm BP Diastolic 62 mm[Hg] 50-85 September 01 2 020 3:03pm BMI (Body Mass Index) 34.8 kg/m2 2019 3:03pm
--- OUTSIDE RECORDS SUMMARY | 2023-09-28 13:07 | XMS_ITS | Continuity of Care Document ---
Author Name [facility] Address [address] [place] [address] Organization [facility] Address [address] [place] [address] Care Team Providers Care Sales Administration Specialist Name Role Phone PCP, of Choice Primary Care Physician Unavailab Blank Moralez Attending Physician Unavailab merary Allergies, Adverse Reactions, Alerts No known allergies. Medications No medication information available. Problem List Active Problems Medical Problem Onset Date Status Essential hypertension May 17, 2016 Mitral valve disease May 17, 2016 Procedures Procedure Date Status ECHO Complete July 10, 2019 active Relevant Diagnostic Tests and/or Laboratory Data No known relevant diagnostic tests, laboratory data, and/or discharge summary. Chief Complaint and Reason for Visit Encounter Admit Date Chief Complaint Reason for V isit Departed Clinical July 10, 2019 12:09pm Nonrheumatic mitral valve prolapse Hospital Discharge Instructions No known hospital discharge instructions. Encounters Encounter Facility Location Admit/Visit Date Discharge/Departure Date Attending Provider Departed Clinical [facility] July 10, 2019 12:09pm July 10, 2019 12:10pm Blank Polanco Departed Referred [facility] Pathology May 08, 2019 8:28pm May 08, 2019 8:29pm Diane Stiles Functional Status No known functional status. Immunizations No known immunizations. Payers Payer Name Policy Type Covered Democrat Covered Democrat Id Relationship Subscriber Subscriber Id [facility] Commercial AUSTYN MARTIN [id number] 17 Self/Same as Patient AUSTYN KAYNESTOR [id number] [place] Medicaid AUSTYN ROMEROOSWALD [id number] Self/Same as Patient AUSTYN ROMEROTROYNESTOR [id number] MEDICARE PART A AND B COVERAGE Medicare Primary AUSTYN KAYNESTOR [id number] Self/Same as Patient AUSTYN MARTIN [id number] SELF PAY Personal Plan of Care No Known Plan of Care Information Social History No known social history. Vital Signs No known vital signs results.
--- OUTSIDE RECORDS SUMMARY | 2023-09-28 13:07 | XMS_ITS | Continuity of Care Document ---
Author Name [facility] Address [address] [place] [address] Organization [facility] Address [address] [place] [address] Care Team Providers Care Pastry Cook Name Role Phone Rosa Buchanan Primary Care Physician Rosa Buchanan Attending Physician Allergies, Adverse Reactions, Alerts No allergy information available. Medications No medication information available. Problem List No problem information available. Procedures Procedure Date Status Moreno Mammo Bilat Scrn Panel April 26, [...] in use 02/28/17. Test Performed by: [place] [address] Nuclear Plant Operator: Alejandro Bright MD , Ph D Varicella-Zoster IgG Antibody March 17, 2017 11:00am Positive Presence of detectable Varicella Zoster virus IgG antibodies. Test Performed by: [place] [address] Nuclear Plant Operator: Alejandro Bright MD , Ph D Advance Directives Advance Directive Response Recorded Date/ Time Do we have a copy on file here at [facility]? No April 26, 2017 9:39am Does patient have an Advanced Directive? No November 11, 2010 4:25pm Pt has a Living Will? No October 152009 4:25pm Pt has a Power of Skein Mercerizing Machine Operator? No Dece mb2009 4:25pm Chief Complaint and Reason for Visit Encounter Admit Date Chief Complaint Reason for V isit Departed Clinical April 26, 2017 9:36am Screening Hospital Discharge Instructions No known hospital discharge instructions. Encounters Encounter Facility Location Admit/Visit Date Discharge/Departure Date Attending Provider Departed Clinical [facility] April 26, 2017 9:36am April 26, 2017 9:37am Rosa Buchanan Departed Referred [facility] March 17, 2017 5:24pm March 17, 2017 5:25pm Rosa Buchanan Registered Referred [facility] September 07, 2016 4:21pm Rosa Buchanan Registered Clinical [facility] Cardiology [facility] June 14, 2016 11:00am Jason Ramírez Jr Functional Status No known functional status. Immunizations No known immunizations. Payers Payer Name Policy Type Covered Democrat Covered Democrat Id Relationship Subscriber Subscriber Id [facility] Commercial AUSTYN KAYNESTOR [id number] 17 Self/Same as Patient AUSTYN ROMEROOSWALD [id number] [place] Medicaid AUSTYN ROMEROOSWALD [id number] Self/Same as Patient AUSTYN MARIO [id number] SELF PAY Personal Plan of Care No Known Plan of Care Information Social History No known social history. Vital Signs No known vital signs results.
--- OUTSIDE RECORDS SUMMARY | 2023-09-28 13:07 | XMS_ITS | Continuity of Care Document ---
Author Name [facility] Address [address] [place] [address] Organization [facility] Address [address] [place] [address] Care Team Providers Care Helicopter Repairer Name Role Phone Diane Deal Primary Care Physician Jason Ramírez Jr Attending Physician Allergies, Adverse Reactions, Alerts No known allergies. Medications Active Medications Medication Dose Units Route Sig Qty Start Date St atus Naproxen 500 MG ORAL DAILY July 16 Active Oxybutynin Chloride 5 MG ORAL TWICE A DAY July 16, 2019 Active Gabapentin 100 MG ORAL THREE TIMES A DAY Sep 2018 Active Calcium Carbonate-Vitamin D3 [Calcium 600 With Vitamin D3] 1 CAP ORAL DAILY September 01, 2020 A ctive Lisinopril 10 MG ORAL DAILY 90 September 07 2 021 Active Discontinued Medications Medication Dose Units Route Sig Qty Start Date Discontin ued Date Status Lisinopril 10 MG ORAL DAILY July 16, 2019 September 07, 2021 Discontinued Problem List Active Problems Medical Problem Onset Date Status Essential hypertension May 17, 2016 Mitral valve disease May 17, 2016 Procedures No known history of procedures. Relevant Diagnostic Tests and/or Laboratory Data Laboratory Results Test Date/Time Result Interp. Ref. Range Result Co mment Magnesium Level May 12, 2021 9:47am 2.0 mg/dL 1.6 -2.3 Chief Complaint and Reason for Visit Encounter Admit Date Chief Complaint Reason for V isit Departed Physician/Provider Office Visit September 07, 2021 9:14am 1 year follow up Essential hypertension Mitral valve disease Hospital Discharge Instructions No known hospital discharge instructions. Hospital Discharge Medications Medication Dose Units Route Sig Qty Days Order Date Status Ins tructions Naproxen 500 MG ORAL DAILY Septemb er 2018 Active Oxybutynin Chloride 5 MG ORAL TWICE A DAY July 16, 2019 Active Lisinopril 10 MG ORAL DAILY Septe mber 2018 Discontinued Gabapentin 100 MG ORAL THREE TIMES A DAY July 16, 2019 Active Calcium Carbonate-Vit chaves D3 1 CAP ORAL DAILY August Active Lisinopril 10 MG ORAL DAILY 90 Octob er 2020 Active Encounters Encounter Facility Location Admit/Visit Date Discharge/Departure Date Attending Provider Departed Physician/Pr ovider Office Visit [facility] Cardiology September 07, 2021 9:14am September 07, 2021 9:35am Jason Ramírez Jr Departed Referred [facility] May 12, 2021 5:16pm May 12, 2021 5:17pm Diane Deal Encounter Diagnosis Onset Date Essential hypertension May 17, 2016 Mitral valve disease May 17, 2016 Functional Status No known functional status. Immunizations No known immunizations. Plan of Care No Known Plan of Care Information Social History No known social history. Vital Signs Vital Reading Result Reference Range Collection Date/Time Height 4 ft 3 in September 07 9:16am Weight 60.804 kg September 07 9:16am Pulse 68 BPM 60-100 September 07 9:16am Respiration 16 RPM 12-September 07 9:16am Pulse Oximetry 98 % 95-100 September 07, 2 021 9:16am Body Mass Index 36.2 September 07, 2021 9:16am
--- OUTSIDE RECORDS SUMMARY | 2023-09-28 13:07 | XMS_ITS | Continuity of Care Document ---
Author Name Unknown Address [address] [place] [address] Phone [facility] Address [address] [place] [address] Phone Care Team Providers Care Retail Department Reset Name Role Phone PARI Deal Primary Care Provider [phone] PARI Deal Attending Provider Chief Complaint and Reason for Visit Chief Complaint 1 year follow up Allergies, Adverse Reactions, Alerts No known allergies [...] 11:32am Lisinopril Active 10 MG PO DAILY Septem 2018 11:33am Gabapentin Active 100 MG PO THREE KOBE ES A DAY July 16, 2019 11:33am Calcium Carbonate-Vi tamin D3 (Calcium 600 With Vitamin D3) 600 mg(1,500mg) -500 unit capsule Active 1 CAP PO DAILY September 01, 2020 3:05pm Relevant Diagnostic Tests and/or Laboratory Data Laboratory Results Test Date/Time Result Interpretation Reference Range Result Comment Performing Site Magnesium Level May 12, 2021 9:47am 2.0 mg/dL 1.6-2.3 MAIN [facility] [address] [facility] [address] Vital Signs Vital Reading Result Reference Range Collection Date/Time Height 51 [in_i] September 07 9:16am Weight 60.80 kg September 07 9:16am Heart Rate 68 /min 60-100 September 07 9:16am Respiratory rate 16 /min 12-24 August 9:16am Oxygen saturation by Pulse oximetry 98 % 95-100 September 07, 2021 9 :16am BMI (Body Mass Index) 36.2 kg/m2 Octobe r 2020 9:16am Advance Directives Advance Directive Response Recorded Date/ Time Does patient have an Advanced Directive? No November 11, 2010 5:25pm Do we have a copy on file here at [facility]? No April 26, 2017 9:39am Pt has a Living Will? No October 152009 5:25pm Do we have a copy on file here at [facility]? No April 26, 2017 9:39am Pt has a Power of Web Design Intern? No [facility]2009 5:25pm Do we have a copy on file here at [facility]? No April 26, 2017 9:39am Insurance Providers Guarantor AUSTYN MARTIN Address [address] [facility] [id number] Contact Info. Home Phone: Payer Policy Id Coverage Id Subscriber's Name Subscriber Id Effective Date Expiration Date [facility] [id number] 7 AUSTYN MARTIN [id number] 2016 [place] [id number] AUSTYN MARTIN [id number] MEDICARE PART A AND B COVERAGE [id number] AUSTYN MARTIN [id number] SELF PAY Self N/A Encounters Encounter Location(s) Arrival/Admit Date Discharge/Depart Date Provider(s) Departed Referred [facility] May 12, 2021 5:16pm May 12, 2021 5:17pm PARI Zeng Departed Physician/Prov ider Office Visit [facility] Cardiology September 07, 2021 9:14am September 07, 2021 9:35am Jason Ramírez JR, MD
--- OUTSIDE RECORDS SUMMARY | 2023-09-28 13:07 | XMS_ITS | Continuity of Care Document ---
Author Name Address [address] [place] [address] Organization Address [address] [place] [address] Care Team Providers Care Tire Man Name Role Phone Rosa Buchanan Primary Care Physician Rosa Buchanan Attending Physician [phone] Allergies, Adverse Reactions, Alerts No allergy information [...] 152009 4:25pm Pt has a Power of Builder'S Labourer? No Dece 2009 4:25pm Hospital Discharge Instructions No known hospital discharge instructions. Encounters Encounter Facility Location Admit/Visit Date Discharge/Departure Date Attending Provider Departed Referred [facility] March 17, 2017 5:24pm March 17, 2017 5:25pm Rosa Buchanan Registered Referred [facility] September 07, 2016 4:21pm Rosa Buchanan Registered Clinical [facility] June 14, 2016 11:00am Jason Ramírez Jr Registered Clinical [facility] April 20, 2016 8:45am Rosa Buchanan Functional Status No known functional status. Immunizations No known immunizations. Payers Payer Name Policy Type Covered Democrat Covered Democrat Id Relationship Subscriber Subscriber Id [facility] Commercial AUSTYN MARTIN [id number] Self/Same as Patient AUSTYN MARTIN [id number] SELF PAY Personal Plan of Care No Known Plan of Care Information Social History No known social history. Vital Signs No known vital signs results.
--- OUTSIDE RECORDS SUMMARY | 2023-09-28 13:07 | XMS_ITS | Continuity of Care Document ---
Author Name Unknown Address [address] [place] [address] Phone Organization [facility] Address [address] [place] [address] Phone Care Team Providers Care Jumpbasting Collar Baster Name Role Phone PARI Deal Primary Care Provider [phone] Jason Ramírez Jr Attending Provider Rosa Buchanan Attending Provider [phone] Chief Complaint and Reason for Visit Chief Complaint 1 year follow up Reason for Visit Essential hypertensi on Mitral valve disease Allergies, Adverse Reactions, Alerts No known allergies [...] Naproxen Active 500 MG PO DAILY 2018 12:00am Oxybutynin Chloride Active 5 MG PO TWICE A DAY 2018 12:00am Lisinopril Discontin ued 10 MG PO DAILY 2018 12:00am September 07, 2021 9:41am Gabapentin Active 100 MG PO THREE KOBE ES A DAY r 2018 12:00am Calcium Carbonate-V itamin D3 (Calcium 600 With Vitamin D3) 600 mg(1,500mg) -500 unit capsule Active 1 CAP PO DAILY September 01, 2020 12:00am Lisinopril Active 10 MG PO DAILY 90 Octobe r 2020 9:39am Relevant Diagnostic Tests and/or Laboratory Data Laboratory Results Test Date/Time Result Interpretation Reference Range Result Comment Performing Site White Blood Count May 24, 2022 9:25am 7.27 1000/mm3 4.8-10.[address] [address] Red Blood Count May 24, 2022 9:25am 3.99 M/mm3 4.20-5.[address] [address] Hemoglobin May 24, 2022 9:25am 12.6 g/dL 12.0-16.[address] [address] Hematocrit May 24, 2022 9:25am 38.0 % 37-[address] [address] Mean Corpuscular Volume May 24, 2022 9:25am 95.2 fL 81.0-99.[address] [address] Mean Corpuscular Hemoglobin May 24, 2022 9:25am 31.6 pg 27-[address] [address] Mean Corpuscular Hemoglobin Concent May 24, 2022 9:25am 33.2 g/dL 33-[address] [address] Red Cell Distribution Width May 24, 2022 9:25am 11.9 % 11.5-14.[address] [address] Platelet Count May 24, 2022 9:25am 219 1000/mm3 140-[address] [address] Mean Platelet Volume May 24, 2022 9:25am 10.8 fL 7.4-10.[address] [address] Neutrophils (%) (Auto) May 24, 2022 9:25am 58.0 % 40.0-72.[address] [address] Lymphocytes (%) (Auto) May 24, 2022 9:25am 31.4 % 17-[address] [address] Monocytes (%) (Auto) May 24, 2022 9:25am 6.5 % 3-[address] [address] Eosinophils (%) (Auto) May 24, 2022 9:25am 2.6 % 0-[address] [address] Basophils (%) (Auto) May 24, 2022 9:25am 0.8 % 0-[address] [address] Immature Granulocyte % (Auto) May 24, 2022 9:25am 0.7 % 0-[address] [address] Neutrophils # (Auto) May 24, 2022 9:25am 4.22 1000/mm3 1.4-6.[address] [address] Lymphocytes # (Auto) May 24, 2022 9:25am 2.28 1000/mm3 1.2-3.[address] [address] Monocytes # (Auto) May 24, 2022 9:25am 0.47 1000/mm3 0.0-0.[address] [address] Eosinophils # (Auto) May 24, 2022 9:25am 0.19 1000/mm3 0.0-0.[address] [address] Basophils # (Auto) May 24, 2022 9:25am 0.06 1000/mm3 0.0-0.[address] [address] Absolute Immature Granulocyte (auto May 24, 2022 9:25am 0.1 0-[address] [address] Differential Method May 24, 2022 9:25am Automated MAIN LAB [place] [address] Sodium Level May 24, 2022 9:25am 137 mmol/L 137-145 MAIN LAB [place] [address] Potassium Level May 24, 2022 9:25am 4.7 mmol/L 3.6-5.0 MAIN LAB [address] [address] Chloride Level May 24, 2022 9:25am 103 mmol/L 98-107 MAIN LAB [place] [address] Carbon Dioxide Level May 24, 2022 9:25am 25 mmol/L 22-30 MAIN LAB [address] [address] Anion Gap May 24, 2022 9:25am 9 7-16 MAIN LAB [address] [address] Blood Urea Nitrogen May 24, 2022 9:25am 18 mg/dL 7-[address] [address] Creatinine May 24, 2022 9:25am 0.45 mg/dL 0.52-1.04 [place] 512258 Glomerular Filtration Rate Calc May 24, 2022 9:25am > 60 mL/min >60.[address] [address] Glucose Level May 24, 2022 9:25am 87 mg/dL 70-[address] [address] Calcium Level May 24, 2022 9:25am 9.6 mg/dL 8.4-10.[address] [address] Calcium Adjusted for Albumin May 24, 2022 9:25am 10.2 mg/dL 8.4-10.2 MAIN LAB [address] [address] Total Bilirubin May 24, 2022 9:25am 0.5 mg/dL 0.2-1.[address] [address] Aspartate Amino Transf (AST/SGOT) May 24, 2022 9:25am 25 U/L 14-[address] [address] Alanine Aminotransferase (ALT/SGPT) May 24, 2022 9:25am 15 U/L <35 As of 03/13/20, the Reference Range for ALT/SGPT for adult patients has been updated. The Reference Range for ALT/SGPT has not been established for patients <18 years of age. MAIN [address] [address] Total Protein May 24, 2022 9:25am 6.2 g/dL 6.3-8.[address] [address] Albumin May 24, 2022 9:25am 3.6 g/dL 3.5-5.[address] [address] Cholesterol Level May 24, 2022 9:25am 177 mg/dL 59-[address] [address] HDL Cholesterol May 24, 2022 9:25am 51 mg/dL 40-60 The National Cholesterol Education Program (NCEP) has set the following guidelines (reference values) for cholesterol, HDL: Low HDL: <40 mg/dL Normal: 40-60 mg/dL Desirable: >60 mg/dL [address] [address] LDL Cholesterol May 24, 2022 9:25am 110.0 mg/dL 0-[address] [address] VLDL Cholesterol May 24, 2022 9:25am 16.0 mg/dL 0-[address] [address] Cholesterol/HDL Ratio May 24, 2022 9:25am 3.47 0-3.[address] [address] Triglycerides Level May 24, 2022 9:25am 80 mg/dL 0-149 MAIN LAB [facility] [address] [facility] [address] Alkaline Phosphatase May 24, 2022 9:25am 92 U/L 38-126 MAIN LAB [facility] [address] [facility] [address] Thyroid Stimulating Hormone (TSH) May 24, 2022 9:25am 2.08 mlU/L 0.47-4.68 TSH cascade is not recommended for patients in which pituitary or hypothalmic disorders are suspected. MAIN LAB [facility] [address] [facility] [address] Vital Signs Vital Reading Result Reference Range [...] have a copy on file here at [facility]? No April 26, 2017 9:39am Pt has a Living Will? No October 152009 5:25pm Do we have a copy on file here at [facility]? No April 26, 2017 9:39am Pt has a Power of Retail Commission Sales Associate? No 2009 5:25pm Do we have a copy on file here at [facility]? No April 26, 2017 9:39am Insurance Providers Guarantor AUSTYN MARTIN Address [address] [place] [address] Contact Info. Home Phone: Payer Policy Id Coverage Id Subscriber's Name Subscriber Id Effective Date Expiration Date [facility] [id number] AUSTYN MARTIN [id number] 2016 [facility] [id number] AUSTYN MARTIN [id number] MEDICARE PART A AND B COVERAGE [id number] AUSTYN MARTIN [id number] SELF PAY Self N/A Encounters Encounter Location(s) Arrival/Admit Date Discharge/Depart Date Provider(s) Departed Physician/Prov ider Office Visit [facility] September 07, 2021 9:14am September 07, 2021 9:35am Jason Ramírez JR, MD Departed Referred [facility] May 24, 2022 1:40pm May 24, 2022 1:41pm PARI Smith Recent Diagnosis Onset Date Essential hypertension May 17, 2016 Mitral valve disease May 17, 2016 Assessments Diagnosis Onset Date Resolution Status Essential hypertension May 17, 2016 non eactive Mitral valve disease May 17, 2016 nonea ctive Plan of Treatment The patient is a 66-year-old female with a history of mitral valve prolapse and mitral regurgitation. She also has essential hypertension. She has no symptoms of worsening valve function. This includes no new shortness of breath or palpitations which might be consistent with the development of atrial fibrillation. Future Tests Future scheduled test information is unavailable Pending Tests Pending diagnostic test information is unavailable Future Visits Future appointment information is unavailable Referrals to Other Providers Referral information is unavailable Future Procedures Procedure Name Scheduled Date 1,25-Dihydroxyvitamin D May 24, 2022 9:25am Future Medications Future medication information is unavailable Patient Instructions Patient instructions are unavailable
--- OUTSIDE RECORDS SUMMARY | 2023-09-28 13:07 | XMS_ITS | Continuity of Care Document ---
Author Name Unknown Address [address] [place] [address] Phone [facility] Address [address] [place] [address] Phone Care Team Providers Care Steam Brush Operator Name Role Phone Diane Deal Primary Care Provider Diane Deal Attending Provider Allergies, Adverse Reactions, Alerts No known allergies. [...] Mitral valve disease May 17, 2016 Active Relevant Diagnostic Tests and/or Laboratory Data Laboratory Results Test Date/Time Result Interpretation Reference Range Result Comment Performing Site Magnesium Level May 12, 2021 9:47am 2.0 mg/dL 1.6-2.3 MAIN LAB, [address] [facility] [address] Advance Directives Advance Directive Response Recorded Date/ Time Does patient have an Advanced Directive? No November 11, 2010 5:25pm Do we have a copy on file here at [facility]? No April 26, 2017 9:39am Pt has a Living Will? No October 152009 5:25pm Do we have a copy on file here at [facility]? No April 26, 2017 9:39am Pt has a Power of [employer]? No Dece mb2009 5:25pm Do we have a copy on file here at [facility]? No April 26, 2017 9:39am Chief Complaint and Reason for Visit Chief Complaint 1 year follow up Reason for Visit Mitral valve disease Encounters Encounter Location(s) Arrival/Admit Date Discharge/Depart Date Provider(s) [facility] September 01, 2020 2:59pm September 01, 2020 3:16pm Jason Ramírez JR, MD Departed Referred [facility] May 12, 2021 5:16pm May 12, 2021 5:17pm PARI Spangler Recent Diagnosis Onset Date Mitral valve disease May 17, 2016 Assessments Diagnosis Onset Date Resolution Status Mitral valve disease May 17, 2016 nonea ctive Functional Status No Functional Status information available Goals Goals may be documented in an alternate section. Mental Status No Mental Status Information Available Medical Equipment No Medical Equipment Information available Insurance Providers Guarantor AUSTYN MARTIN Address [address] [place] [address] Contact Info. Home Phone: Payer Policy Id Coverage Id Subscriber's Name Subscriber Id Effective Date Expiration Date [id number] AUSTYN MARTIN [id number] 2016 [employer] [place] [id number] AUSTYN MARTIN [id number] MEDICARE PART A AND B COVERAGE [id number] AUSTYN MARTIN [id number] SELF PAY Self N/A Plan of Treatment The patient is a 65-year-old female with history of mitral valve prolapse and moderate mitral regurgitation. She has no symptoms. Furthermore, she has had no palpitations which were previously were concerning for the possible existence of atrial fibrillation. Future Tests Future scheduled test information is unavailable Pending Tests Pending diagnostic test information is unavailable Future Visits Future appointment information is unavailable Referrals to Other Providers Referral information is unavailable Future Procedures Future procedure information is unavailable Future Medications Future medication information is unavailable Patient Instructions Patient instructions are unavailable Social History Smoking Status Status Date of [...] Collection Date/Time Height 51 [in_i] September 01 020 3:03pm Weight 58.51 kg September 01 020 3:03pm Heart Rate 65 /min 60-100 September 01 020 3:03pm Respiratory rate 16 /min 12-24 August 3:03pm Oxygen saturation by Pulse oximetry 95 % 95-100 September 01, 2020 3 :03pm BP Systolic 106 mm[Hg] 100-140 September 01 2 020 3:03pm BP Diastolic 62 mm[Hg] 50-85 September 01 2 020 3:03pm BMI (Body Mass Index) 34.8 kg/m2 Octobe r 2019 3:03pm
--- OUTSIDE RECORDS SUMMARY | 2023-09-28 13:07 | XMS_ITS | Continuity of Care Document ---
Author Name [facility] Address [address] [place] [address] Organization [facility] Address [address] [place] [address] Care Team Providers Care Manager Family Name Role Phone PCP, of Choice Primary Care Physician Diane Ngo Attending Physician Unavailabl e Allergies, Adverse Reactions, Alerts No known allergies. Medications Active Medications Medication Dose Units Route Sig Start Date Status Naproxen 500 MG ORAL DAILY July 16, 2019 Activ e Oxybutynin Chloride 5 MG ORAL TWICE A DAY Julembe r 2018 Active Lisinopril 10 MG ORAL DAILY July 16, 2019 Act anthony Gabapentin 100 MG ORAL THREE TIMES A DAY July Active Problem List Active Problems Medical Problem Onset Date Status Essential hypertension May 17, 2016 Mitral valve disease May 17, 2016 Procedures Procedure Date Status Moreno Mammo Bilat Scrn Panel July 16, 2019 co mpleted ECHO Complete July 10, 2019 active Relevant Diagnostic Tests and/or Laboratory Data No known relevant diagnostic tests, laboratory data, and/or discharge summary. Chief Complaint and Reason for Visit Encounter Admit Date Chief Complaint Reason for V isit Departed Clinical July 16, 2019 10:26am Screening Hospital Discharge Instructions No known hospital discharge instructions. Hospital Discharge Medications Medication Dose Units Route Sig Qty Days Order Date Status Ins tructions Naproxen 500 MG ORAL DAILY Julemb er 2018 Active Oxybutynin Chloride 5 MG ORAL TWICE A DAY July 16, 2019 Active Lisinopril 10 MG ORAL DAILY Jule mber 2018 Active Gabapentin 100 MG ORAL THREE TIMES A DAY July 16, 2019 Active Encounters Encounter Facility Location Admit/Visit Date Discharge/Departure Date Attending Provider Departed Physician/P krishna Office Visit [facility] Cardiology July 16, 2019 11:13am July 16, 2019 11:31am Jason Ramírez Jr Departed Clinical [facility] July 16, 2019 10:26am July 16, 2019 10:27am Diane Stiles Departed Physician/P kingvider Office Visit [facility] Cardiology July 16, 2019 12:00am July 16, 2019 Alice Ratliff Departed Clinical [facility] July 10, 2019 12:09pm July 10, 2019 12:10pm Blank Polanco Departed Referred [facility] Pathology May 08, 2019 8:28pm May 08, 2019 8:29pm Diane Stiles Functional Status No known functional status. Immunizations No known immunizations. Payers Payer Name Policy Type Covered Libertarian Covered Libertarian Id Relationship Subscriber Subscriber Id [id number] [employer] AUSTYN MARTIN [id number] Self/Same as Patient AUSTYN MARTIN [id number] MED[place] Medicaid AUSTYN MARTIN [id number] Self/Same as Patient AUSTYN MARTIN [id number] MEDICARE PART A AND B COVERAGE Medicare Primary AUSTYN MARTIN [id number] Self/Same as Patient AUSTYN MARTIN [id number] SELF PAY Personal Plan of Care No Known Plan of Care Information Social History No known social history. Vital Signs Vital Reading Result Reference Range Collection Date/Time Height 4 ft 3 in July 16 11:18am Weight 55.792 kg July 16 11:18am Temperature n/a Pulse 60 BPM 60-100 July 16 11:18am Respiration 16 RPM -July 16 11:18am Pulse Oximetry 97 % 95-100 July 16, 2019 11:18am Blood Pressure Systolic 118 100-140 Sept emb2018 11:18am Blood Pressure Diastolic 68 50-85 Sep 2018 11:18am Body Mass Index n/a
--- OUTSIDE RECORDS SUMMARY | 2023-09-28 13:07 | XMS_ITS | Continuity of Care Document ---
Author Name [facility] Address [address] [place] [address] Organization [facility] Address [address] [place] [address] Care Team Providers Care Science Consultant Name Role Phone Diane Deal Primary Care Physician Diane Deal Attending Physician Allergies, Adverse Reactions, Alerts No known allergies. Medications Active Medications Medication Dose Units Route Sig Start Date Status Naproxen 500 MG ORAL DAILY July 16, 2019 Activ e Oxybutynin Chloride 5 MG ORAL TWICE A DAY r 2018 Active Lisinopril 10 MG ORAL DAILY July 16, 2019 Act anthony Gabapentin 100 MG ORAL THREE TIMES A DAY July Active Calcium Carbonate-Vitamin D3 [Calcium 600 With Vitamin D3] 1 CAP ORAL DAILY September 01, 2020 Active Problem List Active Problems Medical Problem Onset Date Status Essential hypertension May 17, 2016 Mitral valve disease May 17, 2016 Procedures No known history of procedures. Relevant Diagnostic Tests and/or Laboratory Data Laboratory Results Test Date/Time Result Interp. Ref. Range Result Co mment Magnesium Level May 12, 2021 9:47am 2.0 mg/dL 1.6 -2.3 Hospital Discharge Instructions No known hospital discharge instructions. Hospital Discharge Medications Medication Dose Units Route Sig Qty Days Order Date Status Ins tructions Naproxen 500 MG ORAL DAILY er 2018 Active Oxybutynin Chloride 5 MG ORAL TWICE A DAY July 16, 2019 Active Lisinopril 10 MG ORAL DAILY mber 2018 Active Gabapentin 100 MG ORAL THREE TIMES A DAY July 16, 2019 Active Calcium Carbonate-Vitam in D3 1 CAP ORAL DAILY August Active Encounters Encounter Facility Location Admit/Visit Date Discharge/Departure Date Attending Provider Departed Referred [facility] May 12, 2021 5:16pm May 12, 2021 5:17pm Diane Deal Departed Physician/Mirna brenner Office Visit [facility] Cardiology September 01, 2020 2:59pm September 01, 2020 3:16pm Jason Ramírez Jr Functional Status No known functional status. Immunizations No known immunizations. Plan of Care No Known Plan of Care Information Social History Query Response Date Recorded Comment Smoking Status Never smoker September 01, 2020 3:06pm alcohol intake frequency holidays/specia l occasions only September 01, 2020 3:06pm substance use type does not use September 01, 2020 3:06p m Query Response Start Date Stop Date Smoking Status Never smoker Vital Signs Vital Reading Result Reference Range Collection Date/Time Height 4 ft 3 in September 01 0 3:03pm Weight 58.513 kg September 01 0 3:03pm Pulse 65 BPM 60-100 September 01 0 3:03pm Respiration 16 RPM 12-24 September 01 0 3:03pm Pulse Oximetry 95 % 95-100 September 01 020 3:03pm Blood Pressure Systolic 106 100-140 Octo 2019 3:03pm Blood Pressure Diastolic 62 50-85 Oct caroline2019 3:03pm Body Mass Index 34.8 September 01, 2020 3:03pm
--- OUTSIDE RECORDS SUMMARY | 2023-09-28 13:07 | XMS_ITS | Continuity of Care Document ---
Author Name Unknown Address [address] [place] [address] Phone Organization [facility] Address [address] [place] [address] Phone Care Team Providers Care Smoke Jumper Name Role Phone PARI Deal Primary Care Provider [phone] Jason Ramírez Jr Attending Provider Rosa Buchanan Attending Provider [phone] Chief Complaint and Reason for Visit Chief Complaint 1 year follow up 1 year follow up Reason for Visit [...] 100 MG PO THREE TIMES A DAY 2018 12:00am September 06, 2022 9:27am Calcium Carbonate-V itamin D3 (Calcium 600 With Vitamin D3) 600 mg(1,500mg) -500 unit capsule Active 1 CAP PO DAILY September 01, 2020 12:00am Lisinopril Active 10 MG PO DAILY 90 Octobe 2020 9:39am Relevant Diagnostic Tests and/or Laboratory Data Laboratory Results Test Date/Time Result Interpretation Reference Range Result Comment Performing Site White Blood Count May 24, 2022 9:25am 7.27 1000/mm3 4.8-10.8 [facility] [id number] [address] [address] Red Blood Count May 24, 2022 9:25am 3.99 M/mm3 4.20-5.40 [facility] [id number] [address] [address] Hemoglobin May 24, 2022 9:25am 12.6 g/dL 12.0-16.0 [facility] [id number] [address] [address] Hematocrit May 24, 2022 9:25am 38.0 % 37-47 [facility] [id number] [address] [address] Mean Corpuscular Volume May 24, 2022 9:25am 95.2 fL 81.0-99.0 [facility] [id number] [address] [address] Mean Corpuscular Hemoglobin May 24, 2022 9:25am 31.6 pg 27-31 [facility] [id number] [address] [address] Mean Corpuscular Hemoglobin Concent May 24, 2022 9:25am 33.2 g/dL 33-37 [facility] [id number] [address] [address] Red Cell Distribution Width May 24, 2022 9:25am 11.9 % 11.5-14.5 [facility] [id number] [address] [address] Platelet Count May 24, 2022 9:25am 219 1000/mm3 140-440 MA[facility] [id number] [address] [address] Mean Platelet Volume May 24, 2022 9:25am 10.8 fL 7.4-10.4 [facility] [id number] [address] [address] Neutrophils (%) (Auto) May 24, 2022 9:25am 58.0 % 40.0-72.0 MA[facility] [id number] [address] [address] Lymphocytes (%) (Auto) May 24, 2022 9:25am 31.4 % 17-45 MA[facility] [id number] [address] [address] Monocytes (%) (Auto) May 24, 2022 9:25am 6.5 % 3-11 MA[facility] LAB [id number] [address] [address] Eosinophils (%) (Auto) May 24, 2022 9:25am 2.6 % 0-3 [facility] [id number] [address] [address] Basophils (%) (Auto) May 24, 2022 9:25am 0.8 % 0-1 [facility] [id number] [address] [address] Immature Granulocyte % (Auto) May 24, 2022 9:25am 0.7 % 0-1 [facility] [id number] [address] [address] Neutrophils # (Auto) May 24, 2022 9:25am 4.22 1000/mm3 1.4-6.5 [facility] [id number] [address] [address] Lymphocytes # (Auto) May 24, 2022 9:25am 2.28 1000/mm3 1.2-3.4 [facility] [id number] [address] [address] Monocytes # (Auto) May 24, 2022 9:25am 0.47 1000/mm3 0.0-0.8 [facility] [id number] [address] [address] Eosinophils # (Auto) May 24, 2022 9:25am 0.19 1000/mm3 0.0-0.7 [facility] [id number] [address] [address] Basophils # (Auto) May 24, 2022 9:25am 0.06 1000/mm3 0.0-0.1 [facility] [id number] [address] [address] Absolute Immature Granulocyte (auto May 24, 2022 9:25am 0.1 0-1 [facility] [id number] [address] [address] Differential Method May 24, 2022 9:25am Automated [facility] [id number] [address] [address] Sodium Level May 24, 2022 9:25am 137 mmol/L 137-145 [facility] [id number] [address] [address] Potassium Level May 24, 2022 9:25am 4.7 mmol/L 3.6-5.0 [facility] [id number] [address] [address] Chloride Level May 24, 2022 9:25am 103 mmol/L 98-107 [facility] [id number] [address] [address] Carbon Dioxide Level May 24, 2022 9:25am 25 mmol/L 22-30 [facility] [id number] [address] [address] Anion Gap May 24, 2022 9:25am 9 7-16 [facility] [id number] [address] [address] Blood Urea Nitrogen May 24, 2022 9:25am 18 mg/dL 7-17 [facility] [id number] [address] [address] Creatinine May 24, 2022 9:25am 0.45 mg/dL 0.52-1.04 [facility] [id number] [address] [address] Glomerular Filtration Rate Calc May 24, 2022 9:25am > 60 mL/min >60.0 MA[facility] LAB [id number] [address] [address] Glucose Level May 24, 2022 9:25am 87 mg/dL 70-100 MA[facility] LAB [id number] [address] [address] Calcium Level May 24, 2022 9:25am 9.6 mg/dL 8.4-10.2 [facility] [id number] [address] [address] Calcium Adjusted for Albumin May 24, 2022 9:25am 10.2 mg/dL 8.4-10.2 [facility] [id number] [address] [address] Total Bilirubin May 24, 2022 9:25am 0.5 mg/dL 0.2-1.3 [facility] [id number] [address] [address] Aspartate Amino Transf (AST/SGOT) May 24, 2022 9:25am 25 U/L 14-36 MAIN LAB [id number] [address] [address] Alanine Aminotransfe rase (ALT/SGPT) May 24, 2022 9:25am 15 U/L <35 As of 03/13/20, the Reference Range for ALT/SGPT for adult patients has been updated. The Reference Range for ALT/SGPT has not been established for patients <18 years of age. MAIN LAB [id number] [address] [address] Total Protein May 24, 2022 9:25am 6.2 g/dL 6.3-8.2 MAIN LAB [id number] [address] [address] Albumin May 24, 2022 9:25am 3.6 g/dL 3.5-5.0 MAIN LAB [id number] [address] [address] Cholesterol Level May 24, 2022 9:25am 177 mg/dL 59-199 MAIN LAB [id number] [address] [address] HDL Cholesterol May 24, 2022 9:25am 51 mg/dL 40-60 The National Cholesterol Education Program (NCEP) has set the following guidelines (reference values) for cholesterol, HDL:Low HDL: <40 mg/dLNormal: 40-60 mg/dLDesirable: >60 mg/dL MAIN LAB [id number] [address] [address] LDL Cholesterol May 24, 2022 9:25am 110.0 mg/dL 0-129 MAIN LAB [id number] [address] [address] VLDL Cholesterol May 24, 2022 9:25am 16.0 mg/dL 0-32 MAIN LAB [id number] [address] [address] Cholesterol/ HDL Ratio May 24, 2022 9:25am 3.47 0-3.9 MAIN LAB [id number] [address] [address] Triglyceride s Level May 24, 2022 9:25am 80 mg/dL 0-149 MAIN LAB [id number] [address] [address] Alkaline Phosphatase May 24, 2022 9:25am 92 U/L 38-126 MAIN LAB [id number] [address] [address] Vitamin D 1,25-Dihydro xy May 24, 2022 9:25am 27 pg/mL 18 ----ADDITIONAL INFORMATION---- This test was developed and its performance characteristics determined by [facility] in a manner consistent with CLIArequirement s. This test has not been cleared or approved bythe U.S. Food and Drug Administration. Test Performed by:[facility] [place] [id number] Director: Juan Carlos Castillo M.D. Ph.D.; CLIA# [id number] [facility] [id number] Thyroid Stimulating Hormone (TSH) May 24, 2022 9:25am 2.08 mlU/L 0.47-4.68 TSH cascade is not recommended for patients in which pituitary or hypothalmic disorders are suspected. MAIN LAB [id number] [address] [address] Vital Signs Vital Reading Result Reference Range Collection Date/Time Height 51 [in_i] September 07, 2 021 9:16am Weight 60.80 kg September 07, 2 021 9:16am Heart Rate 68 /min 60-100 September 07, 2 021 9:16am Respiratory rate 16 /min 12-August 9:16am Oxygen saturation by Pulse oximetry 98 % 95-100 September 07, 2021 9 :16am BMI (Body Mass Index) 36.2 kg/m2 Octobe r 2020 9:16am Height 51 [in_i] September 06, 022 9:24am Weight 61.23 kg September 06, 2 022 9:24am Heart Rate 69 /min 60-100 September 06, 2 022 9:24am Respiratory rate 16 /min -August 9:24am Oxygen saturation by Pulse oximetry 97 % 95-100 September 06, 2022 9 :24am BP Systolic 100 mm[Hg] 100-140 September 06, 2 022 9:24am BP Diastolic 68 mm[Hg] 50-85 September 06, 2 022 9:24am BMI (Body Mass Index) 36.5 kg/m2 [facility] r 2021 9:24am Advance Directives Advance Directive Response Recorded Date/ Time Does patient have an Advance Directive? No September 06, 2022 9:21am Does patient have a COLST form? No September 06, 2022 9:21am Insurance Providers Guarantor AUSTYN MARTIN Address [address] [place] [id number] Contact Info. Home Phone: Payer Policy Id Coverage Id Subscriber's Name Subscriber Id Effective Date Expiration Date [facility] [id number] AUSTYN MARTIN [id number] [address] [facility] [id number] AUSTYN MARTIN [id number] MEDICARE PART A AND B COVERAGE [id number] AUSTYN MARTIN [id number] SELF PAY Self N/A Encounters Encounter Location(s) Arrival/Admit Date Discharge/Depart Date Provider(s) Departed Physician/Prov ider Office Visit [facility] Cardiology September 07, 2021 9:14am September 07, 2021 9:35am Jason Ramírez JR, MD Departed Referred [facility] May 24, 2022 1:40pm May 24, 2022 1:41pm PARI Smith Departed Physician/Prov ider Office Visit [facility] Cardiology September 06, 2022 9:21am September 06, 2022 9:42am Jason Ramírez JR, MD Recent Diagnosis Onset Date Essential hypertension May [...]
--- OUTSIDE RECORDS SUMMARY | 2023-09-28 13:07 | XMS_ITS | Continuity of Care Document ---
Author Name Unknown Address [address] [place] [address] Phone [facility] Address [address] [place] [address] Phone Care Team Providers Care Zone Manager Name Role Phone PCP, of Choice Primary Care Provider Diane Hoyt Attending Provider Unavailable PCP, of Choice Primary Care Provider UnavailBlank Malhotra Attending Provider Unavailabl e PCP, of Choice Primary Care Provider UnavailDiane Rogers Attending Provider Unavailable Diane Stiles Primary Care Provider Unavaila Jason Alex Jr Attending Provider Unavailable Allergies, Adverse Reactions, Alerts No known allergies. Medications Medication Status Dose Units Route Sig Qty Days Start Date End Date Instructions Naproxen Active 500 MG ORAL DAILY 2018 11:32am Oxybutynin Chloride Active 5 MG ORAL TWICE A DAY July 16, 2019 11:32am Lisinopril Active 10 MG ORAL DAILY 2018 11:33am Gabapentin Active 100 MG ORAL THREE TIMES A DAY July 16, 2019 11:33am Problems Active Problems Medical Problem Onset Date Status Essential hypertension May 17, 2016 Active Mitral valve disease May 17, 2016 Active Procedures Procedure Date Performed Status ECHO Complete July 10, 2019 active [facility] Mammo Bilat Scrn Panel July 16, 2019 completed Relevant Diagnostic Tests and/or Laboratory Data Diagnostic Imaging Reports Report Dictated Date/Time Dictated By Status Radiology Report July 16, 2019 11:31am Fabiola Wu MD completed [facility] MAMMOGRAPHY REPORT PATIENT NAME: AUSTYN MARTIN MRN: [id number] DATE OF : 1955 ATTENDING/ER PHYSICIAN: Diane Gilmore ER/ATTENDING PHYSICIAN: PRIMARY CARE PHYS: No Pcp ADMITTING PHYSICIAN: CONSULTING PHYSICIAN: PROCEDURE DATE: 07/16/19 REPORT STATUS: Signed DICTATING PHYSICIAN: Fabiola Wu MD REASON FOR EXAM: Screening PROCEDURE: [facility] Mammo Bilat Scrn Panel CLINICAL HISTORY: 64 years-old woman comes in for her annual screening exam. COMPARISON: 2016. TECHNIQUE: Digital conventional 2-D and 3-D tomosynthesis views were obtained. The findings were confirmed with computer-aided detection (CAD). FINDINGS: The breasts are comprised of scattered fibroglandular tissue. Benign appearing calcifications are present. There are no suspicious microcalcifications in either breast. There are no suspicious masses in either breast. CONCLUSION: 1. No suspicious findings. In the absence of new clinical symptoms, screening mammography is recommended in one year. BI-RADS 2. Benign finding(s). Patients with a negative mammogram will be sent a letter with results. If further evaluation is required, the radiology department will notify the patient. If a biopsy is recommended, the patient will be informed and the radiology department will inform the referring provider's office. If a 6 months follow-up is recommended, the patient will be informed -- additional order will be required from the provider's office. The frequency of follow-up appointments was discussed with a patient by the dairy technologist as part of the exam. The patient will receive a reminder phone call one week prior to her next screening appointment. dd: 07/16/19 1131 <Electronically signed by Fabiola Wu MD in OV> 07/16/19 1131 Chief Complaint and Reason for Visit Chief Complaint Nonrheumatic mitral valve prolapse Screening 1 yr fu (echo ordered, do be done 1 week prior) Encounters Encounter Location(s) Arrival/Admit Date Discharge/Depart Date Provider(s) Departed Referred [facility]Pathology May 08, 2019 8:28pm May 08, 2019 8:29pm PARI Truong Departed Clinical [facility] July 10, 2019 12:09pm July 10, 2019 12:10pm Blank SALCEDO Departed Physician/Prov ider Office Visit [facility] July 16, 2019 12:00am July 16, 2019 Conversion Medent Departed Clinical [facility] July 16, 2019 10:26am July 16, 2019 10:27am PARI Truong Departed Physician/Prov ider Office Visit [facility] July 16, 2019 11:13am July 16, 2019 11:31am Jason Ramírez JR, MD Assessments No Assessments Information Available Functional Status No Functional Status information available Goals No Goals Information Available Mental Status No Mental Status Information Available Medical Equipment No Medical Equipment Information available Insurance Providers Guarantor AUSTYN MARTIN Address [address] [place] [address] Contact Info. Home Phone: Payer Policy Id Coverage Id Subscriber's Name Subscriber Id Effective Date Expiration Date [facility] [id number] AUSTYN MARTIN [id number] 2016 [employer] [place] [id number] AUSTYN MATRIN [id number] MEDICARE PART A AND B COVERAGE [id number] AUSTYN MARTIN [id number] SELF PAY Self N/A Social History Assigned [...]
--- OUTSIDE RECORDS SUMMARY | 2023-09-28 13:07 | XMS_ITS | Continuity of Care Document ---
Author Name [facility] Address [address] [place] [address] Organization [facility] Address [address] [place] [address] Care Team Providers Care Sonography Technologist Name Role Phone PCP, of Choice Primary Care Physician Diane Ngo Attending Physician Korin hdz Allergies, Adverse Reactions, Alerts No allergy information available. Medications No medication information available. Problem List Active Problems Medical Problem Onset Date Status Essential hypertension May 17, 2016 Mitral valve disease May 17, 2016 Procedures No known history of procedures. Relevant Diagnostic Tests and/or Laboratory Data No known relevant diagnostic tests, laboratory data, and/or discharge summary. Hospital Discharge Instructions No known hospital discharge instructions. Encounters Encounter Facility Location Admit/Visit Date Discharge/Departure Date Attending Provider Departed Referred [facility] Pathology May 08, 2019 8:28pm May 08, 2019 8:29pm Diane Stiles Departed Physician/P rovider Office Visit [facility] Cardiology July 10, 2018 12:00am July 10, 2018 Medent, Conversion Functional Status No known functional status. Immunizations No known immunizations. Payers Payer Name Policy Type Covered Constitution Party Covered Constitution Party Id Relationship Subscriber Subscriber Id [facility] Commercial GRACE DAWSON [id number] Self/Same as Patient GRACE DAWSON [id number] [place] Medicaid GRACE KAYNESTOR [id number] Self/Same as Patient GRACE DAWSON [id number] SELF PAY Personal Plan of Care No Known Plan of Care Information Social History No known social history. Vital Signs Vital Reading Result Reference Range Collection Date/Time Height 4 ft 3 in July 10, 2018 11:24am Weight 60.5 kg July 10, 2018 11:24am Temperature n/a Pulse 59 BPM 60-100 July 10, 2018 11:24am Respiration 16 RPM -July 10, 2018 11:24am Pulse Oximetry 97 % 95-100 July 10 11:24am Blood Pressure Systolic 128 100-140 [facility] 2017 11:24am Blood Pressure Diastolic 60 50-85 Jun [facility] 2017 11:24am Body Mass Index n/a
== END 2023-09-28 13:06 | disposition home or self-care (01) ==
LOC: LBO 13:05
PROVIDERS: PCP Family Medicine; Visit Provider Physician Assistant Medical
DX: E78.1 Pure hyperglyceridemia (principal)
CPT/HCPCS: 36415; 80053

== ENCOUNTER 2024-09-16 01:44 | Outpatient (CLI) | payer MEDICARE, MEDICAID, SELFPAY ==
--- NOTE | 2024-09-16 | DI.MAMMO_ITS ---
Exam(s) MAMMO SCREENING EXAM: MAMMO SCREENING CLINICAL HISTORY: Z12.39 Screening TECHNIQUE: Bilateral full field digital CC and MLO mammographic images were obtained with 3D tomosyn thesis and utilizing computer aided detection (CAD). COMPARISON: Available for comparison. FINDINGS: Masses/Architectural Distortion: None seen. Microcalcifications: No suspicious pleomorphic-type are seen. Skin Thickening/Nipple Retraction: None. IMPRESSION: 1. No significant interval change with no specific features of malignancy noted. 2. Unless there is more urgent need, screening mammography is recommended, as per [place] [employer] guidelines. BI-RADS Category 1 - Negative Breast Density - Category B - Scattered areas of fibroglandular density Breast density category C or D implies that the patient has dense breast tissue. Dense breast tissue is very common and is not abnormal but dense breast tissue can make it harder to find cancer on a ma mmogram. Also, dense breast tissue may increase their breast cancer risk. This information about the result of the mammogram report was provided to the patient to raise their awareness. Use this report when you speak with the patient about their risks for breast cancer, which includes their family hist ory. At that time, you may recommend for more screening tests (Ultrasound or MRI) as they might be us eful based on their risk. A negative radiographic report should not delay biopsy if a dominant or clinically suspicious mass is present. Up to ten percent of cancers are not identified on mammography. A negative report may reinforce clinical impression. Adenosis and dense breasts may obscure an underlying neoplasm. False positive reports average 6 to 10%. Patient will receive a letter notifying them of these results.
== END 2024-09-16 02:04 ==
PROVIDERS: PCP Family Medicine; Visit Provider Physician Assistant Medical
DX: Z12.31 Encounter for screening mammogram for malignant neoplasm of breast (principal)
CPT/HCPCS: 77063; 77067